=== PATIENT | male | born 1950 | race Caucasian/White ===

== ENCOUNTER 2019-12-08 11:07 | Day surgery (SDC) | payer MEDICARE, MEDICAID, SELFPAY ==
[2019-12-07 13:42] VITALS: BMI 17.7
[2019-12-08] VITALS (10 sets, daily range): BP systolic 141–173; BP diastolic 85–110; PULSE 73–86; RESP 16–20; TEMP 36.6–37.2; O2SAT 95–100
[2019-12-08] MEDS: sodium chloride 0.9% 1,000 ML 30 ML IV (11:44)
--- NOTE | 2019-12-08 11:53 | PM.HPUD ---
H&P update H&P Update: DATE OF SURGERY/PROCEDURE: 12/08/19 DATE H&P PERFORMED: 12/03/19 H&P UPDATE INFORMATION: H&P completed within last 30 days and No changes to prior documentation PREOP DIAGNOSIS: Symptomatic cholelithiasis PLANNED PROCEDURE: Operation Date: 12/08/19 12:35 Proposed Procedures p Laparoscopic Cholecystectomy 61221 R10.9(Not Applicable) - Torin Stanford MD Full H&P Medications/Allergies: Current Medications: Current Medications Generic Name Dose Route Start Last Admin Trade Name Freq PRN Reason Stop Dose Admin Sodium Chloride 1,000 mls @ 30 ml s/hr 12/08/19 11:30 12/08/19 11:44 Sodium Chloride 0.9% IV 12/09/19 11:29 30 mls/hr .Q24H TANYA Administration Perinent History: Family History: Family History (Updated 12/03/19 @ 14:54 by Claudette Alonso RN) Sister Diabetes Other Cancer Denies family history of Anesthesia complication Bleeding disorder Social History: Social History Smoking and tobacco status: current every day smoker cigarettes Second hand smoke exposure: Yes Alcohol intake: never Substance/Drug Use: never Adopted: No Caregiver/support person: Yes Lives independently: Yes Household members: none Housing: Assisted Living Facility Marital status: Highest education level completed: High School Graduate service: No Current occupational status: retired Current occupational exposures/hazards: No Pets and animals: No History of recent travel: No Sexually active: Yes Current gender identity: Male Rupinder/Judaism: [employer] Special rupinder needs: No Agree to transfusion: No Financial difficulty paying for basics: Decline to Answer
--- NOTE | 2019-12-08 12:11 | ANES.PREANES ---
Pre-Anesthetic Assessment Pre-Anesthetic Assessment: Height/Weight: Height 1.68 m Weight 49.895 kg Temp Pulse Resp BP Pulse Ox 98.9 F 77 18 173/110 98 12/08/19 11:21 12/08/19 11:21 12/08/19 11:21 12/08/19 11:21 12/08/19 11:21 Preop Diagnosis: Symptomatic cholelithiasis Proposed Procedure: Operation Date: 12/08/19 12:35 Proposed Procedures p Laparoscopic Cholecystectomy 85868 R10.9(Not Applicable) - Torin Stanford MD Last intake: Intake Last Liquid Date 12/07/19 Last Solid Date 12/07/19 Last Intake: 22:00 Social: Social History: Tobacco Packs per day: 1/2 Pack years: 23.5 Exam: Pre-Anes Outpt Exam: alert, oriented x 3, clear to auscultation bilaterally and regular rate & rhythm Airway: Submandibular: WNL Cervical ROM: WNL MP: 1 GI: GI: GERD Comments: choleliais well conteolled w/protonix Neuropsych: Neuropsych: CVA Comments: '05 right arm weakness, lasted one hour. no residual Anesthetic Plan: ASA status: II Anesthesia: General Meds/Allergies Current Medications: Current Medications Generic Name Dose Route Start Last Admin Trade Name Freq PRN Reason Stop Dose Admin Sodium Chloride 1,000 mls @ 30 ml s/hr 12/08/19 11:30 12/08/19 11:44 Sodium Chloride 0.9% IV 12/09/19 11:29 30 mls/hr .Q24H TANYA Administration PFSH Anesthesia PFSH: Social History (Updated 12/07/19 @ 13:39 by Alma Hicks RN) Smoking and tobacco status: current every day smoker cigarettes Second hand smoke exposure: Yes Alcohol intake: never Substance/Drug Use: never Adopted: No Caregiver/support person: Yes Lives independently: Yes Household members: none Housing: Assisted Living Facility Marital status: Highest education level completed: High School Graduate service: No Current occupational status: retired Current occupational exposures/hazards: No Pets and animals: No History of recent travel: No Sexually active: Yes Current gender identity: Male Rupinder/Confucianism: Spiritism Special rupinder needs: No Agree to transfusion: No Financial difficulty paying for basics: Decline to Answer Data Anesthesia Cardiac Studies: No Data to Display
[2019-12-08] MEDS: ceFAZolin 1,000 MG in sodium chloride 0.9% (plus) 50 ML 100 MG IV (12:29)
[2019-12-08] MEDS: lidocaine 2% INJ 20 mL INJECTION (12:51)
--- NOTE | 2019-12-08 13:23 | PM.OP ---
Operative Report Date of procedure: 12/09/19 Pre-op Diagnosis: Symptomatic cholelithiasis Post-op diagnosis: other (Chronic calculus cholecystitis) Post-op Findings: The same Procedure Done: Laparoscopic cholecystectomy Specimens removed/disposition: Gallbladder and contents Lymph node of [place] Surgeon: Torin Stanford Angledozer Operator: Surgical Wai Villalpando Circulating nurse Kassidy Anesthesia: General (gasoline catalyst operator Stan) and Local Estimated blood loss (mL): 10 Complications: No immediate complication Findings: Chronic cholecystitis Condition: stable Disposition: same day Brief History: This is a pleasant 69 years old gentleman presented with history of persistent nausea and vomiting was found to have gallbladder stones. Plan of care; After thorough history physical examination and reviewing the chart ,I counseled the patient for laparoscopic cholecystectomy possible open, indications risks including but not limited injury to the common bile duct and other viscera.benefits and alternatives all discussed with the patient, and she did agree to proceed. All questions have been answered and all concerns have been addressed to patient's satisfaction. Informed consent per chart Procedure: Patient was identified in the holding area and taken back to the operative suite, placed in supine position intubated by anesthesia . Time-out was done verifying the patient's name/date of /planned procedure and destination after the procedure, all were in agreement. SCDs confirmed to be functioning, preoperative antibiotics administered per protocol, and beta gisel protocol was confirmed. Patient was appropriately secured to the table, footboard was applied to the OR table, before prep and drape anesthesia was asked to tilt the table back and forth to make sure that the patient is appropriately secured and she was. Prep and drape of the abdomen was done under the usual sterile technique, followed by that Infraumbilical skin incision,skin incision was done by a 15 blade knife, and stay sutures were applied to the fascia and Black trocar technique was used to enter the abdominal without injuring any abdominal viscera, started by low flow gas insufflation followed by a high flow, started with a 10 mm laparoscope and under direct vision there was no evidence of any injuries, the scope then switched to a 30? ,10 millimeter scope and under direct visualization 5 millimeter trocar was inserted in the epigastric region followed by two 5 mm trocars were inserted in the right upper quadrant that was done after injection of local lidocaine 2% at all incision sites. Gallbladder showed chronic cholecystitis with enlarged lymph node of [place] Patient was then positioned in the head up and tilted to the left dissection started by taking adhesions down using [place] forceps with heat, continued dissection until I identified the critical view of the cystic duct and cystic artery where seen connected to the gallbladder. Clips were applied on the cystic duct towards the common bile duct 1 towards the gallbladder then divided is in sharp scissors, 2 clips were then applied onto the cystic artery and 1 towards the gallbladder and divided by sharp scissors. Dissection was then carried along of the gallbladder from the gallbladder fossa using cautery as well as sharp dissection with heat energy. The gallbladder then was dissected out from the gallbladder fossa totally , cholecystectomy was then achieved and was placed in an Endo Catch bag and then retrieved from the Black trocar site under direct visualization using a 5 mm 30? scope through the epigastric trocar, specimen was then passed to the circulating nurse to go for permanent pathology,irrigation and hemostasis was done to the gallbladder fossa after hemostasis was secured, final survey laparoscopy was done that showed no injuries. Suction irrigation was obtained The Infraumbilical fascial defect was then closed using interrupted Vicryl sutures using a fascial closure device ;Fabricio Barton under direct visualization Gas was allowed to deflate,Trocars were then taken out under direct vision there was no evidence of bleeding Specimen was passed to the circulating nurse for permanent pathology. No drains were placed and the Infraumbilical incision as well as all trocar sites were closed by by 4-0 Monocryl to approximate the skin edges of the supraumbilical incision, dressing was applied in the form of Dermabond and the patient patient got extubated and was taken to recovery area in a stable condition. Count of sponges, needles and instruments were completed at the end of the procedure I was present for the whole entire procedure.
--- NOTE | 2019-12-08 13:41 | SUR.PHASEI ---
1340 PATIENT TO PACU AT THIS TIME VIA GURNEY FROM OR. RR EVEN AND UNLABORED. ORAL AIRWAY IN PLACE. SIMPLE MASK PLACED AT 8L, SPO2 100%. PATIENT OPENS EYES TO VERBAL STIMULI. 4 STABS TO ABDOMEN, CDI.
[2019-12-08] MEDS: fentaNYL 50 mcg/mL INJ 2mL IVP ×2 (13:59→14:03)
--- NOTE | 2019-12-08 14:15 | SUR.PHASEI ---
1408 PATIENT TO OPS VIA GURNEY. RR EVEN AND UNLABORED. RATES PAIN 5/10. PATIENT AGREES TO TAKE A PAIN PILL PO IN OPS AFTER EATING. 4 STABS TO ABDOMEN, CDI.
[2019-12-08] MEDS: HYDROcodone-acetaminophen 5-325 mg Tablet 1 TAB PO (15:08)
== END 2019-12-08 15:05 | disposition other institution (70) ==
PROVIDERS: PCP Nurse Practitioner Family; Visit Provider Surgery
PROC: 0FT44ZZ Resection of Gallbladder, Percutaneous Endoscopic Approach (ICD-10-PCS; CPT 47562; principal; 2019-12-08 12:35)
DX: K80.10 Calculus of gallbladder with chronic cholecystitis without obstruction (principal); R59.0 Localized enlarged lymph nodes; F17.210 Nicotine dependence, cigarettes, uncomplicated; Z83.3 Family history of diabetes mellitus
CPT/HCPCS: 38500; 47562; 12345; 88304; 88305; 96365; J0131; J0690; J2001; J2405; J2704; J2710; J3010; J3490; J7030

== ENCOUNTER 2019-12-12 14:00 | Emergency (ER) | payer MEDICARE, MEDICAID, SELFPAY ==
[2019-12-12 14:01] VITALS: BP 146/79; PULSE 64; RESP 18; TEMP 36.7; O2SAT 94; BMI 17.7
--- NOTE | 2019-12-12 14:03 | ED_ITS ---
Entered by Trice Martínez, acting as scribe for Tanvi Monreal MD HPI - Abdominal Pain General: Chief Complaint: Abdominal Pain Stated Complaint: ABD PAIN Time Seen by Provider: 12/12/19 14:03 Source: patient and EMS Mode of arrival: EMS Limitations: no limitations History of Present Illness: HPI narrative: 69 yo male presents to ED with complaints of abdominal pain. had gall bladder removed on Saturday (12.08.2019) by Dr Vuong. He was told he had an infection while at the [facility] in [place] ([facility]). He said he has only had a small bowel movement in 4 days. MD elicited complaint: abdominal pain Pertinent past history: other (recent cholecystectomy) Onset (ago): day(s) (4) Pain Consistency: intermittent Location: Diffuse Severity: moderate Quality: aching Radiation: none Migration to: no migration Exacerbating factors: bowel movement (no BM) and other (pain medication) Relieving factors: nothing Context: recent surgery/procedure (cholecystectomy) Associated Symptoms: Reports change in bowel habits and constipation; Denies chills and fever(s) Treatments prior to arrival: prescription analgesics Review of Systems Const: Denies: fever or chills Eyes: Denies: change in vision ENMT: Denies: throat pain or mouth pain Card: Denies: chest pain Resp: Denies: shortness of breath GI: Reports: constipation and change in bowel habits Musc: Denies: back pain or joint pain Skin/Breast: Denies: rash Neuro: Denies: headache or behavioral changes Psych: Denies: depression Endo: Denies: excessive urination Patrick/Lymph: Denies: easy bruising All/Imm: Denies: hives PFSH ED PFSH: Statuses (acute, chronic, etc) shown below reflect problem list status as previously entered and may not be historically accurate Surgical History (Updated 12/08/19 @ 13:28 by Torin Stanford MD) Gallstones (Resolved) Social History (Updated 12/07/19 @ 13:39 by Alma Hicks RN) Smoking and tobacco status: current every day smoker cigarettes Second hand smoke exposure: Yes Alcohol intake: never Adopted: No Caregiver/support person: Yes Lives independently: Yes Household members: none Housing: Assisted Living Facility Marital status: Highest education level completed: High School Graduate service: No Current occupational status: retired Current occupational exposures/hazards: No Pets and animals: No History of recent travel: No Sexually active: Yes Current gender identity: Male Rupinder/Presybeterian: [employer] Special rupinder needs: No Agree to transfusion: No Financial difficulty paying for basics: Decline to Answer Physical Exam Const: COMMON NORMALS: no apparent distress and healthy appearing HENMT: COMMON NORMALS: normocephalic and external nose normal HEAD & SCALP: normocephalic NOSE: external nose normal and no nasal discharge (nasal dischage) Eye: COMMON NORMALS: PERRL PUPIL: Yes PERRL Neck/C-Spine: COMMON NORMALS: full ROM and no lymphadenopathy Chest: COMMONS NORMALS: inspection of chest normal Resp: COMMON NORMALS: normal respiratory effort and clear to auscultation bilaterally AUSCULTATION: clear to auscultation bilaterally Cardio: COMMON NORMALS: regular rate and regular rhythm RATE: regular rate RHYTHM: regular rhythm GI: COMMON NORMALS: soft to palpation PALPATION: Yes soft Extremity: COMMON NORMALS: normal to inspection, full ROM and normal capillary refill Psych: COMMON NORMALS: mental status grossly normal and cooperative Skin: COMMON NORMALS: no rashes or lesions noted GENERAL SKIN EXAM: no rashes or lesions noted Course Vital Signs: Vital signs: Vital Signs Temperature 98.0 F 12/12/19 14:01 Pulse Rate 57 L 12/12/19 17:01 Respiratory Rate 18 12/12/19 17:01 Blood Pressure 122/72 12/12/19 17:01 Pulse Oximetry 98 12/12/19 17:01 MDM - Abdominal Pain MDM Narrative: Medical decision making narrative: Patient presents here with abdominal pain likely from constipation has had no bowel movements. Patient CT scan here is normal. He has no tenderness on exam. Patient is stable for discharge and is to follow-up with a surgeon in 3 to 5 days and return if worsening. Lab Data: Labs: Lab Results 12/12/19 12/12/19 Range/Units 14:10 14:44 WBC 6.2 (4.0-10.0) 10^3/ uL RBC 4.25 (4.1-5.3) 10^6/u L Hgb 13.0 (11.7-16.6) g/dL Hct 38.6 L (42.0-52.0) % MCV 90.8 (80-94) fL MCH 30.6 (28.0-34.0) pg MCHC 33.7 (30.0-36.0) g/dL RDW 15.2 H (12.1-15.1) % Plt Count 268 (130-400) 10^3/c mm MPV 11.7 H (7.4-10.4) fL Neut % (Auto) 58.7 % Lymph % (Auto) 25.6 % [place] % (Auto) 12.1 % Eos % (Auto) 2.6 % Baso % (Auto) 0.8 % Neut # (Auto) 3.6 (1.8-7.7) 10^3/u L Lymph # (Auto) 1.6 (0.8-4.8) 10^3/u L [place] # (Auto) 0.8 (0.2-0.9) 10^3/u L Eos # (Auto) 0.2 (0.0-0.8) 10^3/u L Baso # (Auto) 0.1 (0.0-0.1) 10^3/u L Nucleated RBC % (a uto) 0 % Nucleated RBCs # 0.0 /100WBC Sodium 141 (136-145) mmol/L Potassium 3.5 (3.5-5.1) mmol/L Chloride 100 (98-107) mmol/L Carbon Dioxide 30 H (22-29) mmol/L Anion Gap 14.5 (5-19) BUN 10 (8-23) mg/dL Creatinine 0.6 L (0.7-1.2) mg/dL GFR Calculation 134.4 H (90-130) mL/min Glucose 106 (74-106) mg/dL Calcium 9.6 (8.5-10.5) mg/dL Total Bilirubin 0.5 (0.15-1.2) mg/dL AST 17 (0-40) U/L ALT 20 (0-41) U/L Alkaline Phosphata se 105 (40-130) IU/L Total Protein 6.5 L (6.6-8.7) g/dL Albumin 4.2 (3.5-5.2) g/dL Globulin 2.3 (1.3-4.6) g/dL Lipase 13 (13-60) U/L Imaging Data ^: CT Abd/Pel: Radiologist's impression: [facility] Final Radiology Report Call: [phone] assistance Online chat: [email or web address] Name: ZULEMA LOVE Age: 69Years M Date: 12/12/2019 SSN: -- : [id number] Study: CT ABDOMEN/PELVIS W Requesting Physician: tanvi Monreal Images: 224 Add?l Studies: Provided Clinical History: abd pain Procedure Accession CTDI Vol (mGy) DLP (mGy-cm) CT ABDOMEN/PELVIS W [id number] 454.4 Page 1 of 2 PROCEDURE INFORMATION: Exam: CT Abdomen And Pelvis With Contrast Exam date and time: 12/12/2019 2:09 PM Age: 69 years old Clinical indication: Abdominal pain; Generalized; Prior surgery; Surgery date: 3-7 days postoperative; Patient HX: Gb surgery 12/08/2019, llq pain across umbilicus; Additional info: Abd pain TECHNIQUE: Imaging protocol: Computed tomography of the abdomen and pelvis with intravenous contrast. Total DLP: 454.4 mGy-cm Radiation optimization: All CT scans at this facility use at least one of these dose optimization techniques: automated exposure control; mA and/or kV adjustment per patient size (includes targeted exams where dose is matched to clinical indication); or iterative reconstruction. Contrast material: OMNIPAQUE 300; Contrast volume: 95 ml; Contrast route: IV; COMPARISON: CT abdomen pelvis w con* [id number] 10/12/2019 4:23 PM FINDINGS: Liver: Normal. No mass. Gallbladder and bile ducts: Interval cholecystectomy. Pancreas: Normal. No ductal dilation. Spleen: Normal. No splenomegaly. Adrenals: Normal. No mass. Kidneys and ureters: Normal. No hydronephrosis. Stomach and bowel: Moderate diverticulosis. Appendix: No evidence of appendicitis. ZULEMA LOVE Final Radiology Report CONFIDENTIALITY STATEMENT This report is intended only for use by the referring physician, and only in accordance with law. If you received this in error, call [phone]. Page 2 of 2 Intraperitoneal space: Extensive pneumoperitoneum. Ggso-nb-ehlxzlty free fluid in the dependent portion of the pelvis with some fluid fluid levels. The free air and free fluid in the abdomen pelvis could be secondary to recent surgery versus occult bowel perforation. No obvious bowel perforation is identified. Vasculature: Calcification of the abdominal aorta and/or iliac arteries consistent with atherosclerotic vessel disease. Lymph nodes: Unremarkable. No enlarged lymph nodes. Bladder: Unremarkable as visualized. Reproductive: Unremarkable as visualized. Bones/joints: Unremarkable. No acute fracture. Soft tissues: Unremarkable. IMPRESSION: 1. Extensive pneumoperitoneum. 2. Interval cholecystectomy. 3. The free air and free fluid in the abdomen pelvis could be secondary to recent surgery versus occult bowel perforation. No obvious bowel perforation is identified. Thank you for allowing us to participate in the care of your patient. Dictated and Authenticated by: Suhas Quintero MD 12/12/2019 Discharge Plan Discharge Patient Disposition: Home, Self-Care Clinical Impression: Abdominal pain Qualifiers: Abdominal location: generalized Qualified Code(s): R10.84 - Generalized abdominal pain Constipation Qualifiers: Constipation type: drug induced constipation Qualified Code(s): K59.03 - Drug induced constipation Condition: Stable Prescriptions: New Miralax 17 gram/dose powder 8.5 gm PO DAILY PRN (Reason: constipation) 14 Days RF: 0 No Action alprazolam 1 mg tablet 1 mg PO BID RF: 0 Soma 350 mg Tablet 350 mg PO DAILY RF: 0 hydrocodone-acetaminophen [[place]] 5-325 mg tablet 1 tab PO Q6H PRN (Reason: pain) Qty: 28 RF: 0 Discharge Orders: Discharge Order (Routine); Ordered 12/12/19 Ordered By: Tanvi Monreal Referrals: Torin Stanford MD [Physician] - 4-7 days Brock King DO [Family Provider] - Vanessa Lomas [Primary Care Provider] - Discharge Diet: Advance as tolerated Discharge Activity: Increase activity as tolerated Patient Instructions: Abdominal Pain (ED) Discharge Date/Time: 12/12/19 17:07 Coding Level of Care Code ED Tentmaker for Chg Fwd The documentation recorded by the Mauricio nails Valerie R accurately reflects the service I personally performed and the decisions made by Rah clemons Korby, MD Dec 12, 2019 14:00
--- NOTE | 2019-12-12 14:08 | CTR_ITS ---
PROCEDURE INFORMATION: Exam: CT Abdomen And Pelvis With Contrast Exam date and time: 12/12/2019 2:09 PM Age: 69 years old Clinical indication: Abdominal pain; Generalized; Prior surgery; Surgery date: 3-7 days post-operative; Patient HX: Gb surgery 12/08/2019, llq pain across umbilicus; Additional info: Abd pain TECHNIQUE: Imaging protocol: Computed tomography of the abdomen and pelvis with intravenous contrast. Total DLP: 454.4 mGy-cm Radiation optimization: All CT scans at this facility use at least one of these dose optimization techniques: automated exposure control; mA and/or kV adjustment per patient size (includes targeted exams where dose is matched to clinical indication); or iterative reconstruction. Contrast material: OMNIPAQUE 300; Contrast volume: 95 ml; Contrast route: IV; COMPARISON: CT abdomen pelvis w con* [id number] 10/12/2019 4:23 PM FINDINGS: Liver: Normal. No mass. Gallbladder and bile ducts: Interval cholecystectomy. Pancreas: Normal. No ductal dilation. Spleen: Normal. No splenomegaly. Adrenals: Normal. No mass. Kidneys and ureters: Normal. No hydronephrosis. Stomach and bowel: Moderate diverticulosis. Appendix: No evidence of appendicitis. Intraperitoneal space: Extensive pneumoperitoneum. Resk-iu-fxhhgjfc free fluid in the dependent portion of the pelvis with some fluid fluid levels. The free air and free fluid in the abdomen pelvis could be secondary to recent surgery versus occult bowel perforation. No obvious bowel perforation is identified. Vasculature: Calcification of the abdominal aorta and/or iliac arteries consistent with atherosclerotic vessel disease. Lymph nodes: Unremarkable. No enlarged lymph nodes. Bladder: Unremarkable as visualized. Reproductive: Unremarkable as visualized. Bones/joints: Unremarkable. No acute fracture. Soft tissues: Unremarkable. CT/CT abdomen pelvis w con* [id number] IMPRESSION: 1. Extensive pneumoperitoneum. 2. Interval cholecystectomy. 3. The free air and free fluid in the abdomen pelvis could be secondary to recent surgery versus occult bowel perforation. No obvious bowel perforation is identified. Radiation Dose CTDIVOL = (mGy): DLP = 454.4 (mGy-cm)
[2019-12-12 14:21] LABS: Basophils # 0.1 10^3/uL (0.0-0.1); Basophils % 0.8 %; Eosinophils # 0.2 10^3/uL (0.0-0.8); Eosinophils % 2.6 %; Hematocrit 38.6 % (42.0-52.0); Lymphocytes # 1.6 10^3/uL (0.8-4.8); Lymphocytes % 25.6 %; Mean Corpuscular HGB Conc 33.7 g/dL (30.0-36.0); Mean Corpuscular Hemoglobin 30.6 pg (28.0-34.0); Mean Corpuscular Volume 90.8 fL (80-94); Mean Platelet Volume 11.7 fL (7.4-10.4); Monocytes # 0.8 10^3/uL (0.2-0.9); Monocytes % 12.1 %; Neutrophils # 3.6 10^3/uL (1.8-7.7); Neutrophils % 58.7 %; Nucleated Red Blood Cells % 0 %; Platelet Count 268 10^3/cmm (130-400); Red Blood Count 4.25 10^6/uL (4.1-5.3); Red Cell Distribution Width 15.2 % (12.1-15.1); White Blood Count 6.2 10^3/uL (4.0-10.0)
[2019-12-12 15:12] LABS: Alanine Aminotransferase 20 U/L (0-41); Albumin Level 4.2 g/dL (3.5-5.2); Alkaline Phosphatase 105 IU/L (40-130); Anion Gap 14.5 (5-19); Aspartate Amino Transferase 17 U/L (0-40); Blood Urea Nitrogen 10 mg/dL (8-23); Calcium 9.6 mg/dL (8.5-10.5); Carbon Dioxide 30 mmol/L (22-29); Chloride 100 mmol/L (98-107); Globulin 2.3 g/dL (1.3-4.6); Glomerular Filtration Rate 134.4 mL/min (90-130); Glucose 106 mg/dL (74-106); Lipase 13 U/L (13-60); Potassium 3.5 mmol/L (3.5-5.1); Sodium 141 mmol/L (136-145); Total Bilirubin 0.5 mg/dL (0.15-1.2); Total Protein 6.5 g/dL (6.6-8.7)
[2019-12-12] MEDS: iohexol 300 mg/mL 100 mL Btl IV (15:36)
[2019-12-12 16:55] VITALS: RESP 18; O2SAT 98
[2019-12-12] MEDS: morphine 4 mg/mL SDV 1 mL IVP (16:55)
[2019-12-12 17:01] VITALS: BP 122/72; PULSE 57; RESP 18; O2SAT 98
--- NOTE | 2019-12-14 14:41 | DCPLANNER ---
manager editorial had message to schedule a followup appointment for patient with general surgery. manager editorial called [facility], an appointment is scheduled for November at 11:00.
--- NOTE | 2020-01-28 11:40 | DCPLANNER ---
Appointment scheduled with [facility], was cancelled.
== END 2019-12-12 17:07 | disposition home or self-care (01) ==
PROVIDERS: Emergency Provider Emergency Medicine; PCP Nurse Practitioner Family
DX: K59.03 Drug induced constipation (principal); F17.210 Nicotine dependence, cigarettes, uncomplicated
CPT/HCPCS: 36415; 74177; 80053; 83690; 85025; 96374; 99281; J2270; Q9967

== ENCOUNTER 2020-06-07 07:39 | Outpatient (CLI) | payer MEDICARE, MEDICAID, SELFPAY ==
--- NOTE | 2020-06-07 07:47 | US_ITS ---
WS: [id number] Limited abdominal ultrasound. HISTORY: Left-sided flank pain. Spleen is normal size at 7.8 cm in length. Normal concavity of the hilum. Mild atherosclerosis aorta with no aneurysm. Normal size LEFT kidney measuring 11.1 cm in length. No mass or hydronephrosis. The re is no ascites or adenopathy identified. US/US abdomen limited [id number] IMPRESSION: Normal appearance of the spleen and LEFT kidney.
--- NOTE | 2020-06-07 07:47 | XRR_ITS ---
PROCEDURE INFORMATION: Exam: XR Left Ribs with PA Chest, 3 Views Exam date and time: 06/07/2020 8:10 AM Age: 70 years old Clinical indication: Other: Left ribs pain; Patient HX: C/O left side rib pain-constant; Additional info: Left sided rib pain TECHNIQUE: Imaging protocol: XR Left ribs 3 views with PA chest. COMPARISON: CR Chest 1 [place] [id number] 11/04/2018 4:15 PM FINDINGS: Lungs: COPD and interstitial prominence. Pleural space: No pleural effusion. Heart/Mediastinum: No cardiomegaly. Bones/joints: Old rib fractures. Cervical spine fusion. Degenerative change. XR/XR ribs LT mn 3V w CXR1V [id number] IMPRESSION: Old rib fractures and COPD.
== END 2020-06-07 07:40 | disposition home or self-care (01) ==
PROVIDERS: PCP Nurse Practitioner Family; Visit Provider Nurse Practitioner Family
DX: R07.81 Pleurodynia (principal); R10.9 Unspecified abdominal pain; J44.9 Chronic obstructive pulmonary disease, unspecified
CPT/HCPCS: 71101; 76705

== ENCOUNTER 2020-09-24 18:19 | Emergency (ER) | payer MEDICARE, MEDICAID, SELFPAY ==
[2020-09-24] VITALS (8 sets, daily range): BP systolic 119–171; BP diastolic 79–96; PULSE 56–73; RESP 16–20; TEMP 36.7; O2SAT 93–98; BMI 17.7
--- NOTE | 2020-09-24 18:31 | XRR_ITS ---
PROCEDURE INFORMATION: Exam: XR Chest, 1 View Exam date and time: 09/24/2020 7:07 PM Age: 70 years old Clinical indication: Other: Dizzy TECHNIQUE: Imaging protocol: XR of the chest Views: 1 view. COMPARISON: CR XR ribs LT mn 3V w CXR1V [id number] 06/07/2020 7:57 AM FINDINGS: Lungs: Stable COPD . Pleural space: Unremarkable. No pleural effusion. No pneumothorax. Heart/Mediastinum: Unremarkable. No cardiomegaly. Vasculature: Calcification of the thoracic aorta and/or great vessels consistent with atherosclerotic vessel disease. Bones/joints: Stable postoperative metallic fixation of the cervical spine with or without metallic artifact. XR/XR chest 1V portable [id number] IMPRESSION: Stable COPD .
--- NOTE | 2020-09-24 18:31 | CTR_ITS ---
PROCEDURE INFORMATION: Exam: CT Head Without Contrast Exam date and time: 09/24/2020 6:57 PM Age: 70 years old Clinical indication: Patient HX: C/O dizziness, weakness, multiple falls w HX of strokes; Additional info: Dizzy TECHNIQUE: Imaging protocol: Computed tomography of the head without contrast. Radiation optimization: All CT scans at this facility use at least one of these dose optimization techniques: automated exposure control; mA and/or kV adjustment per patient size (includes targeted exams where dose is matched to clinical indication); or iterative reconstruction. 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 Cerebral ventricles: No ventriculomegaly. Bones/joints: Mild degenerative disc disease and spondylosis. Postoperative changes over the right lateral superior orbital rim. Associated metallic fixation and artifact. Paranasal sinuses: Mild left maxillary sinus disease. Mild left ethmoid sinus disease. Mastoid air cells: Visualized mastoid air cells are well aerated. Vasculature: Severe calcified intracranial atherosclerotic vessel disease. Soft tissues: Unremarkable. CT/CT head wo con* [id number] IMPRESSION: 1. Mild left maxillary sinus disease. 2. Mild left ethmoid sinus disease. 3. No acute intracranial findings. Radiation Dose CTDIVOL = (mGy): DLP = 832.84 (mGy-cm)
--- NOTE | 2020-09-24 18:31 | ECG_ITS ---
[facility] Test Date: 2020-09-24 Pat Name: Stan Maynard Department: Room: Gender: Male [employer]: : 1950 Requested By: Aden Taylor Order Number: [id number] Mary MD: Evelia Javed M.D. 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 [id number]
[2020-09-24 19:09] LABS: Add Urine Microscopic? NO
[2020-09-24 19:12] LABS: Urine Color Yellow (Yellow)
[2020-09-24 19:13] LABS: Bilirubin Urine Neg (Negative); Blood Urine Neg (Negative); Glucose Urine UA Norm (Normal); Ketones Urine Negative (Negative); Leukocyte Esterase Urine Negative (Negative); Nitrate Urine Negative (Negative); Protein Urine Neg (Negative); Specific Gravity, Urine 1.005 (1.005-1.030); Urine Appearance Clear (CLEAR); Urobilinogen Urine Norm (Negative); pH Urine 6 (5-7)
--- NOTE | 2020-09-24 19:31 | W.ED.DIZZY ---
HPI - Dizziness General: Chief Complaint: Dizziness Stated Complaint: DIZZY AND LIGHT HEADED Time Seen by Provider: 09/24/20 18:21 Source: patient Mode of arrival: ambulatory Limitations: no limitations History of Present Illness: HPI Narrative: Mr. Maynard is a nice 70-year-old man who comes in with multiple complaints. He states that he has been having syncopal spells that happen daily sometimes multiple times per day. He states this has been going on for months. The patient is a difficult historian and I cannot completely tell from his description if he truly has loss of consciousness but these episodes do entail him having to lower himself to the ground and sometimes laying on the ground for some time. It does not sound like he has complete loss of consciousness but this is still unclear. Patient today complains of left-sided weakness that he states started sometime around 2 PM this afternoon. Patient states it feels like when he had a stroke. Associated symptoms: Reports headache(s) and syncope; Denies change in hearing, chest pain, chills, diaphoresis, ear discharge, malaise, nausea, palpitations or vomiting Associated neuro symptoms: Reports numbness in extremities; Deny confusion Review of Systems Const: Denies: fever(s), chills, body aches, fatigue, malaise or diaphoresis Eyes: Denies: change in vision, blurry vision, photophobia, eye discomfort, eye discharge, eye redness or yellow eyes ENMT: Denies: throat pain, odynophagia, hoarseness, swelling of lips/tongue, ear or mastoid pain, ear discharge, change in hearing or nasal discharge Card: Reports: syncope; Denies: chest pain, palpitations, irregular heart rhythm, edema, lightheadedness, pre-syncope, dyspnea on exertion or orthopnea Resp: Denies: dyspnea, productive cough, non-productive cough, wheezing, hemoptysis or chest congestion GI: Denies: abdominal pain, nausea, vomiting, hematemesis, coffee ground emesis, heartburn, diarrhea, constipation, GI cramping, hematochezia or melena : Denies: flank pain, dysuria, urinary frequency, urinary urgency or hematuria Musc: Denies: neck pain, back pain, extremity pain, extremity swelling, joint pain, joint swelling, joint redness, joint warmth or joint stiffness Skin/Breast: Denies: rash, pruritus, erythema, skin pain or skin tenderness Neuro: Reports: headache(s), numbness in extremities, weakness in extremities and dizziness; Denies: sensory changes, lack of coordination, difficulty walking, vertigo, confusion, Slurred speech present or seizure-like activity Patrick/Lymph: Denies: easy bruising, easy bleeding, petechiae, purpura or enlarged lymph nodes All/Imm: Denies: urticaria, throat swelling, tongue swelling, facial swelling or acute wheezing PFSH ED PFSH: Medical History Abnormal EKG Benign essential HTN COPD (chronic obstructive pulmonary disease) Emphysema of lung Frequent falls History of stroke Leg pain Low back pain Memory loss Nausea & vomiting Near syncope Surgical History Gallstones History of back surgery History of endarterectomy Removal of plaque in artery History of knee surgery Right Family History Sister Diabetes Other Cancer Gallstones Denies family history of Anesthesia complication Bleeding disorder Social History Smoking and tobacco status: current every day smoker cigarettes Second hand smoke exposure: Yes Alcohol intake: never Adopted: No Caregiver/support person: Yes Lives independently: Yes Household members: none Housing: Assisted Living Facility Marital status: Highest education level completed: High School Graduate service: No Current occupational status: retired Current occupational exposures/hazards: No Pets and animals: No History of recent travel: No Sexually active: Yes Current gender identity: Male Rupinder/Anglican: Sabianism Special rupinder needs: No Agree to transfusion: No Financial difficulty paying for basics: Decline to Answer Physical Exam Const: COMMON NORMALS: no acute distress, patient oriented x3, no limitations and alert GENERAL APPEARANCE: cooperative HENMT: COMMON NORMALS: normocephalic, atraumatic, external ears normal, EAC's normal and Normal external nose present HEAD & SCALP: normal to inspection, normocephalic and atraumatic FACE & SINUS: normal facial exam and face symmetric NOSE: Normal external nose present and Normal nares present EXTERNAL EAR: Yes external ears normal EXTERNAL AUDITORY CANAL: EAC's normal MOUTH: Normal oral and palatal mucosa present, lip normal and tongue normal Eye: COMMON NORMALS: Equal, round and reactive pupils present and conjunctivae normal GENERAL EYE: appearance normal, both eyes and all related structures ALIGNMENT: Yes alignment normal PERIORBITAL: periorbital findings normal EYELID: eyelids normal CONJUNCTIVA: Yes conjunctivae normal SCLERA: sclerae normal PUPIL: Yes Equal, round and reactive pupils present Neck/C-Spine: COMMON NORMALS: full ROM, no lymphadenopathy, supple, no meningeal signs and no JVD GENERAL: Yes normal visual inspection and Yes trachea midline Chest: COMMONS NORMALS: normal inspection of the chest and normal palpation of entire chest wall Resp: COMMON NORMALS: normal respiratory effort, No retractions, No use of accessory muscles and clear to auscultation bilaterally EFFORT & INSPECTION: Yes able to speak in complete sentences and Yes symmetric chest movement AUSCULTATION: clear to auscultation bilaterally, no crackles, no rales, no rhonchi and no wheezes Cardio: COMMON NORMALS: no JVD, regular rate, regular rhythm, S1 normal heart sound present and S2 normal heart sound present RATE: regular rate RHYTHM: regular rhythm HEART SOUNDS: S1 normal heart sound present, S2 normal heart sound present, no click, no gallops, no murmurs and no rubs GI: COMMON NORMALS: Soft to palpation and No hepatosplenomegaly present PALPATION: Yes Soft to palpation, No Tenderness to palpation present (GI), No Guarding due to palpation present (GI), No Rigid due to palpation, Yes No hepatosplenomegaly present, No Hernia present, No Palpable mass present and No Pulsatile mass present : COMMON NORMALS: Yes no CVA tenderness BLADDER/KIDNEY EXAM: Yes no CVA tenderness Back/Pelvis: COMMON NORMALS: no CVA tenderness, thoracic and lumbar spine normal to inspection, no thoracic nor lumbar tenderness and thoraco-lumbar ROM normal Extremity: COMMON NORMALS: normal to inspection, full ROM, capillary refill normal, no joint enlargement, no clubbing, cyanosis or edema and no calf tenderness Neuro: COMMON NORMALS: patient oriented x3, CN's II-XII intact bilaterally, moves all extremities and no focal motor deficits SENSORIUM/ORIENTATION: Yes alert MENINGEAL SIGNS: Yes no meningeal signs SPEECH: speech normal GAIT: Yes Ataxic gait present and Yes Wide-based gait present MOTOR EXAM: 5/5 motor strength present throughout Psych: COMMON NORMALS: mental status grossly normal, Normal thought process present, cooperative, normal affect, speech normal and activity/motor behavior normal SPEECH: Yes normal speech THOUGHT PROCESS: Normal thought process present Skin: COMMON NORMALS: no rashes or lesions noted, turgor normal, no jaundice, no petechiae and no mottling GENERAL SKIN EXAM: no rashes or lesions noted and turgor normal Course Vital Signs: Vital signs: Vital Signs Temperature 98.1 F 09/24/20 22:59 Pulse Rate 57 L 09/24/20 22:59 Respiratory Rate 17 09/24/20 22:59 Blood Pressure 166/91 09/24/20 22:59 Pulse Oximetry 96 09/24/20 22:59 MDM - Dizziness MDM Narrative: Medical decision making narrative: Mr. Rojo is a nice 70-year-old male who comes in because of frequent falls, questionable near syncopal spells and weakness. The patient gives a very bizarre complex story today about falling and having his legs not work. He states he passes out multiple times a day almost every day. Upon detailed history it does not sound like he truly has syncopal spells but just frequent falls. I am suspicious he may be drinking heavily and have problems with multiple medications such as 10 mg hydrocodone acetaminophen tablets, Soma, Xanax and alcohol. The patient has nystagmus and abnormal [id number] testing bilaterally on his NIH stroke scale. He may have a recrudescence causing his left-sided numbness today but other than left lower extremity weakness which I believe was secondary to his chronic pain I believe his neurologic exam is at its baseline. Nonetheless I do not think that this can be confirmed at this time but I have informed the patient he would likely need to be admitted to the hospital for further evaluation and care but he refuses. He is stated multiple times he has people waiting on him at home and he wants to go home. I have explained to him the risks of going home without a definitive diagnosis including ultimately or severe permanent disability but despite my warnings and discussion he refuses to stay and wants to leave. Patient clearly has the capacity to make this decision. He has asked me several questions and recent in his mind and determined that he is safe to go home but does understand he can return if he needs to. Patient agrees to follow-up with his doctors for recheck. Lab Data: Attestation: I reviewed the patient's lab results. Labs: Lab Results 09/24/20 09/24/20 09/24/20 Range/Units 19:05 19:31 19:31 WBC 6.9 (4.0-10.0) 10^3/ uL RBC 4.54 (4.1-5.3) 10^6/u L Hgb 14.2 (11.7-16.6) g/dL Hct 44.0 (42.0-52.0) % MCV 96.9 H (80-94) fL MCH 31.3 (28.0-34.0) pg MCHC 32.3 (30.0-36.0) g/dL RDW 15.5 H (12.1-15.1) % Plt Count 289 (130-400) 10^3/c mm MPV 12.3 H (7.4-10.4) fL Neut % (Auto) 53.7 % Lymph % (Auto) 27.9 % [place] % (Auto) 12.4 % Eos % (Auto) 4.7 % Baso % (Auto) 0.9 % Neut # (Auto) 3.69 (1.8-7.7) 10^3/u L Lymph # (Auto) 1.9 (0.8-4.8) 10^3/u L [place] # (Auto) 0.9 (0.2-0.9) 10^3/u L Eos # (Auto) 0.3 (0.0-0.8) 10^3/u L Baso # (Auto) 0.1 (0.0-0.1) 10^3/u L Nucleated RBC % (a uto) 0 % Nucleated RBCs # 0.0 /100WBC PT 12.80 (12.1-14.9) SECO NDS INR 0.94 (0.8-1.2) Sodium Potassium Chloride Carbon Dioxide Anion Gap BUN Creatinine GFR Calculation Glucose Calculated Osmolal ity Calcium Total Bilirubin AST ALT Alkaline Phosphata se Creatine Kinase Troponin T Baselin e (0-15) ng/L Total Protein Albumin Globulin Urine Color Yellow (Yellow) Urine Appearance Clear (CLEAR) Urine pH 6 (5-7) Ur Specific Gravit y 1.005 (1.005-1.030) Urine Protein Neg (Negative) Urine Glucose (UA) Norm (Normal) Urine Ketones Negative (Negative) Urine Blood Neg (Negative) Urine Nitrate Negative (Negative) Urine Bilirubin Neg (Negative) Urine Urobilinogen Norm (Negative) mg/dL Ur Leukocyte Dayna ase Negative (Negative) 09/24/20 09/24/20 09/24/20 Range/Units 19:31 19:31 20:53 WBC (4.0-10.0) 10^3/ uL RBC (4.1-5.3) 10^6/u L Hgb (11.7-16.6) g/dL Hct (42.0-52.0) % MCV (80-94) fL MCH (28.0-34.0) pg MCHC (30.0-36.0) g/dL RDW (12.1-15.1) % Plt Count (130-400) 10^3/c mm MPV (7.4-10.4) fL Neut % (Auto) % Lymph % (Auto) % [place] % (Auto) % Eos % (Auto) % Baso % (Auto) % Neut # (Auto) (1.8-7.7) 10^3/u L Lymph # (Auto) (0.8-4.8) 10^3/u L [place] # (Auto) (0.2-0.9) 10^3/u L Eos # (Auto) (0.0-0.8) 10^3/u L Baso # (Auto) (0.0-0.1) 10^3/u L Nucleated RBC % (a uto) % Nucleated RBCs # /100WBC PT (12.1-14.9) SECO NDS INR (0.8-1.2) Sodium Cancelled 142 Potassium Cancelled 4.5 Chloride Cancelled 101 Carbon Dioxide Cancelled 33 H Anion Gap Cancelled 12.5 BUN Cancelled 11 Creatinine Cancelled 0.7 GFR Calculation Cancelled 112.1 Glucose Cancelled 84 Calculated Osmolal ity Cancelled 293 Calcium Cancelled 9.9 Total Bilirubin Cancelled 0.2 AST Cancelled 17 ALT Cancelled 11 Alkaline Phosphata se Cancelled 108 Creatine Kinase Cancelled 44 Troponin T Baselin e 12 (0-15) ng/L Total Protein Cancelled 7.0 Albumin Cancelled 4.3 Globulin Cancelled 2.7 Urine Color (Yellow) Urine Appearance (CLEAR) Urine pH (5-7) Ur Specific Gravit y (1.005-1.030) Urine Protein (Negative) Urine Glucose (UA) (Normal) Urine Ketones (Negative) Urine Blood (Negative) Urine Nitrate (Negative) Urine Bilirubin (Negative) Urine Urobilinogen (Negative) mg/dL Ur Leukocyte Dayna ase (Negative) Imaging Data^: CXR: Attestation: I personally reviewed and interpreted this imaging study as follows: My impression: No acute cardiopulmonary findings. CT Head: Attestation: I personally reviewed and interpreted this imaging study as follows: Radiologist's impression: [address] [place] [address] CT Scan Report Signed Patient: Stan Maynard V Unit #: [id number] : 1950 Age/Sex: 70 / M ADM Date: 09/24/20 Loc: ER Room/Bed: Attending Dr: Ordering Provider/Ordering MD: Aden Hong DO Date of Service: 09/24/20 Procedure(s): CT head wo con* [id number] Accession Number(s): [id number] Report Number: [id number] PROCEDURE INFORMATION: Exam: CT Head Without Contrast Exam date and time: 09/24/2020 6:57 PM Age: 70 years old Clinical indication: Patient HX: C/O dizziness, weakness, multiple falls w HX of strokes; Additional info: Dizzy TECHNIQUE: Imaging protocol: Computed tomography of the head without contrast. Radiation optimization: All CT scans at this facility use at least one of these dose optimization techniques: automated exposure control; mA and/or kV adjustment per patient size (includes targeted exams where dose is matched to clinical indication); or iterative reconstruction. COMPARISON: CT head wo con* [id number] 11/04/2018 5:01 PM RADIATION DOSE METRICS: Total DLP (mGy-cm): 832.84 FINDINGS: Brain: Stable chronic right posterior frontal, temporal and parietal lobe infarct with encephalomalacia. Cerebral ventricles: No ventriculomegaly. Bones/joints: Mild degenerative disc disease and spondylosis. Postoperative changes over the right lateral superior orbital rim. Associated metallic fixation and artifact. Paranasal sinuses: Mild left maxillary sinus disease. Mild left ethmoid sinus disease. Mastoid air cells: Visualized mastoid air cells are well aerated. Vasculature: Severe calcified intracranial atherosclerotic vessel disease. Soft tissues: Unremarkable. CT/CT head wo con* [id number] IMPRESSION: 1. Mild left maxillary sinus disease. 2. Mild left ethmoid sinus disease. 3. No acute intracranial findings. Radiation Dose CTDIVOL = (mGy): DLP = 832.84 (mGy-cm) Dictated By: Suhas Quintero MD Signed By: Suhas Quintero MD Signed Date/Time: 09/24/202005 DD/ 04 CTA Head and Neck: Radiologist's impression: [place] [address] CT Scan Report Signed Patient: Stan Maynard V Unit #: [id number] : 1950 Age/Sex: 70 / M ADM Date: 09/24/20 Loc: ER Room/Bed: Attending Dr: Ordering Provider/Ordering MD: Karla Shea DO Date of Service: 09/24/20 Procedure(s): CT angio headneck* [id number] Accession Number(s): [id number] Report Number: [id number] PROCEDURE INFORMATION: Exam: CT Angiography Head With Contrast Exam date and time: 09/24/2020 9:04 PM Age: 70 years old Clinical indication: Dizziness and giddiness and weakness; Prior surgery; Surgery date: 6+ months; Surgery type: C-sp; Patient HX: C/O weakness, dizziness, multiple falls and prev CVA; Additional info: CVA symptoms TECHNIQUE: Imaging protocol: Computed tomography angiography of the head with intravenous contrast. 3D rendering (Not supervised by radiologist): MIP and/or 3D reconstructed images were created by the technologist. Radiation optimization: All CT scans at this facility use at least one of these dose optimization techniques: automated exposure control; mA and/or kV adjustment per patient size (includes targeted exams where dose is matched to clinical indication); or iterative reconstruction. Contrast material: OMNI 350; Contrast volume: 75 ml; Contrast route: INTRAVENOUS (IV); COMPARISON: CT head wo con* [id number] 2020-09-24 19:28 RADIATION DOSE METRICS: Total DLP (mGy-cm): 1628.45 FINDINGS: ANTERIOR CIRCULATION: Right internal carotid artery: Mild cavernous and supraclinoid right internal carotid artery atherosclerotic plaque and stenosis. Right middle cerebral artery: Peripheral posterior right MCA irregular stenotic arteries corresponding to the region of chronic infarction. Right anterior cerebral artery: Unremarkable. No occlusion or significant stenosis. No aneurysm. Left internal carotid artery: Mild left ICA atherosclerotic disease. Mild cavernous and supraclinoid left internal carotid artery atherosclerotic plaque and stenosis. Left middle cerebral artery: Unremarkable. No occlusion or significant stenosis. No aneurysm. Left anterior cerebral artery: Unremarkable. No occlusion or significant stenosis. No aneurysm. POSTERIOR CIRCULATION: Right vertebral artery: Mild right vertebral artery atherosclerotic disease. Left vertebral artery: Mild left vertebral artery atherosclerotic disease. Basilar artery: Unremarkable. No occlusion or significant stenosis. No aneurysm. Right posterior cerebral artery: Mild right [employer]IST stenosis. Left posterior cerebral artery: Unremarkable. No occlusion or significant stenosis. No aneurysm. Brain: No definite mass, mass effect, or midline shift. Cerebral ventricles: Normal. No ventriculomegaly. Bones/joints: Unremarkable. No acute fracture. Soft tissues: Unremarkable. IMPRESSION: Mild right [employer]IST stenosis. PROCEDURE INFORMATION: Exam: CT Angiography Neck With Contrast Exam date and time: 09/24/2020 9:04 PM Age: 70 years old Clinical indication: Dizziness and giddiness and weakness; Prior surgery; Surgery date: 6+ months; Surgery type: C-sp; Patient HX: C/O weakness, dizziness, multiple falls and prev CVA; Additional info: CVA symptoms TECHNIQUE: Imaging protocol: Computed tomography angiography of the neck with intravenous contrast. 3D rendering (Not supervised by radiologist): MIP and/or 3D reconstructed images were created by the technologist. Radiation optimization: All CT scans at this facility use at least one of these dose optimization techniques: automated exposure control; mA and/or kV adjustment per patient size (includes targeted exams where dose is matched to clinical indication); or iterative reconstruction. Contrast material: OMNI 350; Contrast volume: 75 ml; Contrast route: INTRAVENOUS (IV); COMPARISON: CT head wo con* [id number] 2020-09-24 19:28 RADIATION DOSE METRICS: Total DLP (mGy-cm): 1628.45 FINDINGS: Right common carotid artery: Mild atherosclerotic plaque in the predominately distal right common carotid artery and the bifurcation. Right internal carotid artery: Mild atherosclerotic plaque in the carotid bulb and proximal right internal carotid artery with less than 50% stenosis by NASCET criteria. Right external carotid artery: Mild atherosclerotic plaque at the right external carotid artery origin. Right vertebral artery: Moderate right vertebral artery origin stenosis. Left common carotid artery: Patent left common carotid artery. Left internal carotid artery: Left carotid endarterectomy changes. Patent left ICA. Mild distal left cervical ICA calcified atherosclerotic disease and mild narrowing. Left external carotid artery: No occlusion or stenosis of the origin. Left vertebral artery: No stenosis. No dissection or occlusion. Bones/joints: Cervical posterior spinal fusion with laminectomies. Soft tissues: Normal. No significant soft tissue swelling. Lungs: Moderate centrilobular pulmonary emphysema. CT/CT angio headneck* [id number] IMPRESSION: 1. Moderate centrilobular pulmonary emphysema. 2. Moderate right vertebral artery origin stenosis. 3. Left carotid endarterectomy changes. Patent left common carotid artery. Patent left ICA. 4. Mild atherosclerotic plaque in the carotid bulb and proximal right internal carotid artery with less than 50% stenosis by NASCET criteria. REFERENCES: NASCET CRITERIA. The degree of internal carotid artery stenosis is based on NASCET criteria. Normal is no stenosis. Mild is less than 50% stenosis. Moderate is 50-69% stenosis. Severe is 70% to 99% stenosis. Total occlusion is no detectable patent lumen. Radiation Dose CTDIVOL = (mGy): DLP = 1628.45 1628.45 (mGy-cm) Dictated By: Darshan Moe MD Signed By: Darshan Moe MD Signed Date/Time: 09/24/202225 DD/ 24 EKG Data^: EKG 1: Attestation: I personally reviewed and interpreted this EKG as follows: EKG interpretation date: 09/24/20 EKG interpretation time: 18:42 Interpretation: Normal sinus rhythm at 68 beats a minute, no blocks, normal intervals, nonspecific ST and T wave changes. EKG 2: Attestation: I personally reviewed and interpreted this EKG as follows: EKG interpretation date: 09/24/20 EKG interpretation time: 20:39 Interpretation: Normal sinus rhythm at 61 beats a minute, normal axis, no blocks, normal intervals, nonspecific ST and T wave changes. Unchanged from previous. Discharge Plan Discharge Patient Disposition: Left Against Medical Advice Clinical Impression: Frequent falls, Vertebral basilar insufficiency Cerebrovascular accident Qualifiers: CVA mechanism: unspecified Qualified Code(s): I63.9 - Cerebral infarction, unspecified Condition: Stable Prescriptions: New aspirin 325 mg tablet 325 mg PO DAILY Qty: 30 RF: 0 No Action megestrol 40 mg tablet 40 mg PO DAILY RF: 0 pantoprazole [Protonix] 40 mg tablet,delayed release (DR/EC) 40 mg PO DAILY RF: 0 duloxetine 30 mg capsule, delayed rel sprinkle 30 mg PO DAILY RF: 0 hydroxyzine HCl 25 mg tablet 25 mg PO TID PRNRF: 0 alprazolam 1 mg tablet 1 mg PO BID RF: 0 Soma 350 mg Tablet 350 mg PO DAILY RF: 0 hydrocodone-acetaminophen [[place]] 5-325 mg tablet 1 tab PO Q6H PRN (Reason: pain) Qty: 28 RF: 0 Discharge Orders: Discharge Order (Routine); Ordered 09/24/20 Ordered By: Karla Shea Referrals: Siri Marshall MD [Physician] - 1-3 days Brock King DO [Family Provider] - 1-3 days Vanessa Lomas [Primary Care Provider] - 1-3 days Discharge Diet: Low Cholesterol Discharge Activity: Limit activity as instructed Patient Instructions: Ischemic Stroke (GEN) Activity Restrictions/Additional Instructions: Please return to the ER immediately for any of the signs or symptoms listed on your discharge instruction sheets, worsening/changing of your symptoms, you are not getting better as quickly as expected, or for ANY other cause or concerns. Continue your other medications as directed. Do not drink alcohol or mix any medications with your medication you are already prescribed. Take your hydrocodone, Soma and Xanax only as absolutely needed. You're leaving AGAINST MEDICAL ADVICE and are at risk for or severe permanent disability by doing so. You are more than welcome to return at any time for recheck and for further evaluation and care suture change you change your mind. Be certain to follow-up with your primary care providers as well as with Dr. Marshall as soon as possible for recheck and further evaluation and care. Stand Alone Forms: Against Medical Advice Discharge Date/Time: 11/07/20 22:59 Coding Level of Care Code ED Penetration Tester for Katherine Nguyễn NIH stroke score NIHSS Level Of Consciousness - 1a: 0 Level Of Consciousness Questions - 1b: Both Correct Level Of Consciousness Commands - 1c: Both Correct Best Gaze - 2: Normal Visual Mandel - 3: No Visual Loss Facial Palsy - 4: Normal Motor Arm Right - 5: No Drift Motor Arm Left - 5: No Drift Motor Leg Right - 6: No Drift Motor Leg Left - 6: Drift (Not believed to be due to weakness but secondary to back pain) Limb Ataxia - 7: Present In Two Limbs Sensory - 8: Mild To Moderate Loss Best Language - 9: No Aphasia Dysarthia - 10: Normal Extinction And Inattention - 11: 0 Score Total Score: 4
[2020-09-24 19:46] LABS: Basophils # 0.1 10^3/uL (0.0-0.1); Basophils % 0.9 %; Eosinophils # 0.3 10^3/uL (0.0-0.8); Eosinophils % 4.7 %; Hemoglobin 14.2 g/dL (11.7-16.6); Lymphocytes # 1.9 10^3/uL (0.8-4.8); Lymphocytes % 27.9 %; Mean Corpuscular HGB Conc 32.3 g/dL (30.0-36.0); Mean Corpuscular Hemoglobin 31.3 pg (28.0-34.0); Mean Corpuscular Volume 96.9 fL (80-94); Mean Platelet Volume 12.3 fL (7.4-10.4); Monocytes # 0.9 10^3/uL (0.2-0.9); Monocytes % 12.4 %; Neutrophils # 3.69 10^3/uL (1.8-7.7); Neutrophils % 53.7 %; Nucleated Red Blood Cells % 0 %; Platelet Count 289 10^3/cmm (130-400); Red Blood Count 4.54 10^6/uL (4.1-5.3); Red Cell Distribution Width 15.5 % (12.1-15.1); White Blood Count 6.9 10^3/uL (4.0-10.0)
[2020-09-24 20:11] LABS: Troponin(5th) Baseline 12 ng/L (0-15)
--- NOTE | 2020-09-24 20:29 | CTR_ITS ---
PROCEDURE INFORMATION: Exam: CT Angiography Head With Contrast Exam date and time: 09/24/2020 9:04 PM Age: 70 years old Clinical indication: Dizziness and giddiness and weakness; Prior surgery; Surgery date: 6+ months; Surgery type: C-sp; Patient HX: C/O weakness, dizziness, multiple falls and prev CVA; Additional info: CVA symptoms TECHNIQUE: Imaging protocol: Computed tomography angiography of the head with intravenous contrast. 3D rendering (Not supervised by radiologist): MIP and/or 3D reconstructed images were created by the technologist. Radiation optimization: All CT scans at this facility use at least one of these dose optimization techniques: automated exposure control; mA and/or kV adjustment per patient size (includes targeted exams where dose is matched to clinical indication); or iterative reconstruction. Contrast material: OMNI 350; Contrast volume: 75 ml; Contrast route: INTRAVENOUS (IV); COMPARISON: CT head wo con* [id number] 2020-09-24 19:28 RADIATION DOSE METRICS: Total DLP (mGy-cm): 1628.45 FINDINGS: ANTERIOR CIRCULATION: Right internal carotid artery: Mild cavernous and supraclinoid right internal carotid artery atherosclerotic plaque and stenosis. Right middle cerebral artery: Peripheral posterior right MCA irregular stenotic arteries corresponding to the region of chronic infarction. Right anterior cerebral artery: Unremarkable. No occlusion or significant stenosis. No aneurysm. Left internal carotid artery: Mild left ICA atherosclerotic disease. Mild cavernous and supraclinoid left internal carotid artery atherosclerotic plaque and stenosis. Left middle cerebral artery: Unremarkable. No occlusion or significant stenosis. No aneurysm. Left anterior cerebral artery: Unremarkable. No occlusion or significant stenosis. No aneurysm. POSTERIOR CIRCULATION: Right vertebral artery: Mild right vertebral artery atherosclerotic disease. Left vertebral artery: Mild left vertebral artery atherosclerotic disease. Basilar artery: Unremarkable. No occlusion or significant stenosis. No aneurysm. Right posterior cerebral artery: Mild right WIND OPERATIONS SUPERVISOR stenosis. Left posterior cerebral artery: Unremarkable. No occlusion or significant stenosis. No aneurysm. Brain: No definite mass, mass effect, or midline shift. Cerebral ventricles: Normal. No ventriculomegaly. Bones/joints: Unremarkable. No acute fracture. Soft tissues: Unremarkable. IMPRESSION: Mild right WIND OPERATIONS SUPERVISOR stenosis. PROCEDURE INFORMATION: Exam: CT Angiography Neck With Contrast Exam date and time: 09/24/2020 9:04 PM Age: 70 years old Clinical indication: Dizziness and giddiness and weakness; Prior surgery; Surgery date: 6+ months; Surgery type: C-sp; Patient HX: C/O weakness, dizziness, multiple falls and prev CVA; Additional info: CVA symptoms TECHNIQUE: Imaging protocol: Computed tomography angiography of the neck with intravenous contrast. 3D rendering (Not supervised by radiologist): MIP and/or 3D reconstructed images were created by the technologist. Radiation optimization: All CT scans at this facility use at least one of these dose optimization techniques: automated exposure control; mA and/or kV adjustment per patient size (includes targeted exams where dose is matched to clinical indication); or iterative reconstruction. Contrast material: OMNI 350; Contrast volume: 75 ml; Contrast route: INTRAVENOUS (IV); COMPARISON: CT head wo con* [id number] 2020-09-24 19:28 RADIATION DOSE METRICS: Total DLP (mGy-cm): 1628.45 FINDINGS: Right common carotid artery: Mild atherosclerotic plaque in the predominately distal right common carotid artery and the bifurcation. Right internal carotid artery: Mild atherosclerotic plaque in the carotid bulb and proximal right internal carotid artery with less than 50% stenosis by NASCET criteria. Right external carotid artery: Mild atherosclerotic plaque at the right external carotid artery origin. Right vertebral artery: Moderate right vertebral artery origin stenosis. Left common carotid artery: Patent left common carotid artery. Left internal carotid artery: Left carotid endarterectomy changes. Patent left ICA. Mild distal left cervical ICA calcified atherosclerotic disease and mild narrowing. Left external carotid artery: No occlusion or stenosis of the origin. Left vertebral artery: No stenosis. No dissection or occlusion. Bones/joints: Cervical posterior spinal fusion with laminectomies. Soft tissues: Normal. No significant soft tissue swelling. Lungs: Moderate centrilobular pulmonary emphysema. CT/CT angio headneck* [id number] IMPRESSION: 1. Moderate centrilobular pulmonary emphysema. 2. Moderate right vertebral artery origin stenosis. 3. Left carotid endarterectomy changes. Patent left common carotid artery. Patent left ICA. 4. Mild atherosclerotic plaque in the carotid bulb and proximal right internal carotid artery with less than 50% stenosis by NASCET criteria. REFERENCES: NASCET CRITERIA. The degree of internal carotid artery stenosis is based on NASCET criteria. Normal is no stenosis. Mild is less than 50% stenosis. Moderate is 50-69% stenosis. Severe is 70% to 99% stenosis. Total occlusion is no detectable patent lumen. Radiation Dose CTDIVOL = (mGy): DLP = 1628.45~1628.45 (mGy-cm)
[2020-09-24 20:31] LABS: INR 0.94 (0.8-1.2)
--- NOTE | 2020-09-24 20:31 | ECG_ITS ---
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 Measurements Intervals [place] Rate: 61 P: 76 CT: 150 QRS: 91 QRSD: 73 T: 77 QT: 404 QTc: 409 Interpretive Statements SINUS RHYTHM BORDERLINE RIGHT AXIS DEVIATION [QRS AXIS > 90] SEPTAL MYOCARDIAL INFARCTION , OF INDETERMINATE AGE [40+ ms Q WAVE IN V1/V2] Compared to ECG 09/24/2020 18:42:47 Myocardial infarct finding now present Electronically Signed On 09-26-2020 8:24:48 HOME APPLIANCE TECH by Evelia Javed M.D. [id number]
--- NOTE | 2020-09-24 20:42 | PC.NURSE ---
EKG done at 2039 and shown to ER doctor
[2020-09-24] MEDS: sodium chloride 0.9% 500 ML 999 ML IV (21:22)
[2020-09-24 21:33] LABS: Alanine Aminotransferase 11 U/L (0-41); Albumin Level 4.3 g/dL (3.5-5.2); Alkaline Phosphatase 108 IU/L (40-130); Anion Gap 12.5 (5-19); Aspartate Amino Transferase 17 U/L (0-40); Blood Urea Nitrogen 11 mg/dL (8-23); Calcium 9.9 mg/dL (8.5-10.5); Carbon Dioxide 33 mmol/L (22-29); Chloride 101 mmol/L (98-107); Creatine Phosphokinase 44 U/L (39-308); Creatinine Clr Calc Pharmacy 62.3688; Globulin 2.7 g/dL (1.3-4.6); Glomerular Filtration Rate 112.1 mL/min (90-130); Glucose 84 mg/dL (65-115); Osmolality Calculated 293 mOsm/kg (285-295); Potassium 4.5 mmol/L (3.5-5.1); Sodium 142 mmol/L (136-145); Total Bilirubin 0.2 mg/dL (0.15-1.2)
[2020-09-24] MEDS: iohexol 350 mg/mL 100 mL Btl IV (21:54)
--- NOTE | 2020-09-24 23:09 | PC.SOCIAL ---
[employer] contacted for ride home. Trip #[id number], notified [employer] transport of trip.
[2020-09-24 23:13] LABS: Alcohol Level < 10 mg/dL (0-10)
== END 2020-09-24 22:59 | disposition left against medical advice (07) ==
PROVIDERS: Emergency Medicine; Emergency Provider Emergency Medicine; PCP Nurse Practitioner Family
DX: G45.0 Vertebro-basilar artery syndrome (principal); I63.9 Cerebral infarction, unspecified; R29.6 Repeated falls; Z53.21 Procedure and treatment not carried out due to patient leaving prior to being seen by health care provider; I10 Essential (primary) hypertension; J43.9 Emphysema, unspecified; Z86.73 Personal history of transient ischemic attack (TIA), and cerebral infarction without residual deficits; F17.210 Nicotine dependence, cigarettes, uncomplicated; Z79.899 Other long term (current) drug therapy
CPT/HCPCS: 12345; 70450; 70496; 70498; 71045; 80053; 80307; 81003; 82550; 84484; 85025; 85610; 93005; 99283; 99284; J7040; Q9967

== ENCOUNTER 2021-05-10 10:32 | Observation (INO) | payer MEDICARE, MEDICAID, SELFPAY ==
[2021-05-10] VITALS (10 sets, daily range): BP systolic 104–141; BP diastolic 61–82; PULSE 58–100; RESP 13–20; TEMP 36.1–36.6; O2SAT 90–95; BMI 19.3
--- NOTE | 2021-05-10 10:45 | XR_ITS ---
WS: [id number] PORTABLE CHEST HISTORY: chest pain COMPARISON: 09/24/2020 Moderate pulmonary hyperinflation. Mild blunting of the LEFT costophrenic angle. No pneumonia. Normal vasculature. No effusion. Cardiac size: Normal. Mediastinum/Aorta: Mild atherosclerosis aorta. Extensive prior cervical fusion. XR/XR chest 1V portable [id number] IMPRESSION: Moderate chronic emphysema with no pneumonia.
--- NOTE | 2021-05-10 10:45 | ECG_ITS ---
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 Measurements Intervals [place] Rate: 74 P: 79 AL: 153 QRS: 73 QRSD: 69 T: 67 QT: 369 QTc: 411 Interpretive Statements SINUS RHYTHM LOW QRS VOLTAGE IN EXTREMITY LEADS [QRS DEFLECTION < 0.5 mV IN LIMB LEADS] Compared to ECG 09/24/2020 20:39:35 Low QRS voltage now present Myocardial infarct finding no longer present Electronically Signed On 05-10-2021 20:05:29 CDT by Jerod Mccord M.D. [id number] f
[2021-05-10 11:00] LABS: Basophils # 0.1 10^3/uL (0.0-0.1); Basophils % 0.8 %; Eosinophils # 0.1 10^3/uL (0.0-0.8); Hematocrit 45.8 % (42.0-52.0); Hemoglobin 15.1 g/dL (11.7-16.6); Lymphocytes # 2.3 10^3/uL (0.8-4.8); Mean Platelet Volume 11.6 fL (7.4-10.4); Monocytes # 0.8 10^3/uL (0.2-0.9); Monocytes % 10.6 %; Neutrophils # 4.47 10^3/uL (1.8-7.7); Neutrophils % 57.2 %; Nucleated Red Blood Cells % 0 %; Platelet Count 270 10^3/cmm (130-400); Red Blood Count 4.87 10^6/uL (4.1-5.3); Red Cell Distribution Width 15.5 % (12.1-15.1); White Blood Count 7.8 10^3/uL (4.0-10.0)
--- NOTE | 2021-05-10 11:02 | W.ED.CHESTPA ---
HPI - Chest Pain General: Chief Complaint: Chest Pain Stated Complaint: CHEST PAIN Time Seen by Provider: 05/10/21 10:38 History of Present Illness: HPI narrative: 71-year-old male presents emergency room via EMS reporting around 730 this point began having chest pain radiating to his neck and into his back. He declined aspirin from EMS but did take nitroglycerin which relieved his chest pain. He has no known history of coronary disease no previous angiogram or stenting. He denies any hemoptysis denies any fever sweats chills or cough. Patient is nondiabetic but he is a smoker. MD complaint: chest pain Pertinent past history: coronary artery disease Onset (ago): hour(s) Timing of current episode: episodic Prior episodes: Yes Onset: during rest Pain location: left chest Pain radiation: back and neck Severity: moderate Quality: heaviness Relieving factors: nitroglycerin Associated symptoms: Reports dyspnea; Deny abdominal pain, diaphoresis, fever(s), leg edema, nausea, palpitations, sense of impending doom, syncope or vomiting Treatment prior to arrival: aspirin and nitroglycerin Review of Systems Const: Denies: fever(s) or diaphoresis ENMT: Denies: throat pain, ear or mastoid pain, nasal discharge or nasal congestion Card: Denies: palpitations or syncope Resp: Reports: dyspnea GI: Denies: abdominal pain, nausea or vomiting : Denies: flank pain, dysuria, urinary frequency or urinary urgency Skin/Breast: Denies: rash or pruritus [facility] ED PFSH: Medical History Abnormal EKG Benign essential HTN Carotid artery disease COPD (chronic obstructive pulmonary disease) Depression Emphysema of lung Frequent falls GERD (gastroesophageal reflux disease) History of stroke Leg pain Low back pain Memory loss Nausea & vomiting Near syncope Surgical History Gallstones History of back surgery History of endarterectomy Removal of plaque in artery History of knee surgery Right History of neck surgery Family History Sister Diabetes Other Cancer Gallstones Denies family history of Anesthesia complication Bleeding disorder Social History Smoking and tobacco status: current every day smoker cigarettes Second hand smoke exposure: Yes Alcohol intake: never Adopted: No Caregiver/support person: Yes Lives independently: Yes Household members: none Housing: Assisted Living Facility Marital status: Highest education level completed: High School Graduate service: No Current occupational status: retired Current occupational exposures/hazards: No Pets and animals: No History of recent travel: No Sexually active: Yes Current gender identity: Male Rupinder/Presybeterian: Quaker Special rupinder needs: No Agree to transfusion: No Financial difficulty paying for basics: Decline to Answer Physical Exam Const: COMMON NORMALS: average body habitus, patient oriented x3 and alert GENERAL APPEARANCE: cooperative, comfortable, well kempt and well developed NUTRITIONAL APPEARANCE: obese ORIENTATION/CONSCIOUSNESS: Yes awake, Yes oriented to person and Yes oriented to place HENMT: COMMON NORMALS: normocephalic, atraumatic, EAC's normal, TM's normal bilaterally, Normal external nose present, moist oral mucous membranes and oropharynx normal HEAD & SCALP: normocephalic and atraumatic NOSE: Normal external nose present EXTERNAL AUDITORY CANAL: EAC's normal TYMPANIC MEMBRANE: TM's normal bilaterally MOUTH: Normal oral and palatal mucosa present, lip normal and tongue normal THROAT: posterior oropharynx normal and tonsils normal Neck/C-Spine: COMMON NORMALS: no meningeal signs Resp: COMMON NORMALS: normal respiratory effort, No retractions, No use of accessory muscles and clear to auscultation bilaterally AUSCULTATION: clear to auscultation bilaterally Cardio: COMMON NORMALS: regular rate and regular rhythm RATE: regular rate RHYTHM: regular rhythm HEART SOUNDS: no murmurs GI: COMMON NORMALS: Normal to inspection, nondistended, normoactive bowel sounds present, Soft to palpation and No hepatosplenomegaly present PALPATION: Yes Soft to palpation and Yes No hepatosplenomegaly present : COMMON NORMALS: Yes no CVA tenderness BLADDER/KIDNEY EXAM: Yes no CVA tenderness Back/Pelvis: COMMON NORMALS: no CVA tenderness LUMBAR SPINE/LOWER BACK: Yes normal to inspection Extremity: COMMON NORMALS: no clubbing, cyanosis or edema, no calf tenderness and no pedal edema Neuro: COMMON NORMALS: patient oriented x3 SENSORIUM/ORIENTATION: Yes alert, Yes oriented to person and Yes oriented to place MENINGEAL SIGNS: Yes no meningeal signs Psych: APPEARANCE: Yes well kempt Skin: COMMON NORMALS: no rashes or lesions noted and turgor normal GENERAL SKIN EXAM: no rashes or lesions noted and turgor normal Course Vital Signs: Vital signs: Vital Signs Temperature 98.0 F 05/11/21 13:56 Pulse Rate 70 05/11/21 13:56 Respiratory Rate 18 05/11/21 13:56 Blood Pressure 131/75 05/11/21 13:56 Pulse Oximetry 97 05/11/21 13:56 MDM - Chest Pain MDM Narrative: Medical decision making narrative: Patient has known coronary disease his symptoms are improved with nitro we will go ahead and hobs for further rule out and cardiac stress testing Lab Data: Labs: Lab Results 05/10/21 05/10/21 05/10/21 Range/Units 10:58 10:58 10:58 WBC 7.8 (4.0-10.0) 10^3/ uL RBC 4.87 (4.1-5.3) 10^6/u L Hgb 15.1 (11.7-16.6) g/dL Hct 45.8 (42.0-52.0) % MCV 94.0 (80-94) fL MCH 31.0 (28.0-34.0) pg MCHC 33.0 (30.0-36.0) g/dL RDW 15.5 H (12.1-15.1) % Plt Count 270 (130-400) 10^3/c mm MPV 11.6 H (7.4-10.4) fL Neut % (Auto) 57.2 % Lymph % (Auto) 30.0 % Routt % (Auto) 10.6 % Eos % (Auto) 1.0 % Baso % (Auto) 0.8 % Neut # (Auto) 4.47 (1.8-7.7) 10^3/u L Lymph # (Auto) 2.3 (0.8-4.8) 10^3/u L Routt # (Auto) 0.8 (0.2-0.9) 10^3/u L Eos # (Auto) 0.1 (0.0-0.8) 10^3/u L Baso # (Auto) 0.1 (0.0-0.1) 10^3/u L Nucleated RBC % (a uto) 0 % Nucleated RBCs # 0.0 /100WBC Sodium 140 (136-145) mmol/L Potassium 4.3 (3.5-5.1) mmol/L Chloride 103 (98-107) mmol/L Carbon Dioxide 28 (22-29) mmol/L Anion Gap 13.3 (5-19) BUN 20 (8-23) mg/dL Creatinine 0.8 (0.7-1.2) mg/dL GFR Calculation 95.8 (90-130) mL/min Glucose 83 (65-115) mg/dL Calculated Osmolal ity 292 (285-295) mOsm/k g Calcium 9.3 (8.5-10.5) mg/dL Total Bilirubin 0.7 (0.15-1.2) mg/dL AST 16 (0-40) U/L ALT 13 (0-41) U/L Alkaline Phosphata se 103 (40-130) IU/L Troponin T Baselin e 29 H (0-15) ng/L Total Protein 6.2 L (6.6-8.7) g/dL Albumin 4.3 (3.5-5.2) g/dL Globulin 1.9 (1.3-4.6) g/dL TSH (0.27-4.20) uIU/ mL 05/10/21 Range/Units 10:58 WBC (4.0-10.0) 10^3/ uL RBC (4.1-5.3) 10^6/u L Hgb (11.7-16.6) g/dL Hct (42.0-52.0) % MCV (80-94) fL MCH (28.0-34.0) pg MCHC (30.0-36.0) g/dL RDW (12.1-15.1) % Plt Count (130-400) 10^3/c mm MPV (7.4-10.4) fL Neut % (Auto) % Lymph % (Auto) % Routt % (Auto) % Eos % (Auto) % Baso % (Auto) % Neut # (Auto) (1.8-7.7) 10^3/u L Lymph # (Auto) (0.8-4.8) 10^3/u L Routt # (Auto) (0.2-0.9) 10^3/u L Eos # (Auto) (0.0-0.8) 10^3/u L Baso # (Auto) (0.0-0.1) 10^3/u L Nucleated RBC % (a uto) % Nucleated RBCs # /100WBC Sodium (136-145) mmol/L Potassium (3.5-5.1) mmol/L Chloride (98-107) mmol/L Carbon Dioxide (22-29) mmol/L Anion Gap (5-19) BUN (8-23) mg/dL Creatinine (0.7-1.2) mg/dL GFR Calculation (90-130) mL/min Glucose (65-115) mg/dL Calculated Osmolal ity (285-295) mOsm/k g Calcium (8.5-10.5) mg/dL Total Bilirubin (0.15-1.2) mg/dL AST (0-40) U/L ALT (0-41) U/L Alkaline Phosphata se (40-130) IU/L Troponin T Baselin e (0-15) ng/L Total Protein (6.6-8.7) g/dL Albumin (3.5-5.2) g/dL Globulin (1.3-4.6) g/dL TSH 1.61 (0.27-4.20) uIU/ mL Discharge Plan Discharge Patient Disposition: Admitted As Inpatient Admit Provider: Diony Ray Condition: Stable Discharge Diet: Cardiac Discharge Activity: Increase activity as tolerated Coding Level of Care Code ED Solder Level[employer] for Katherine Nguyễn
[2021-05-10] MEDS: nitroglycerin 1 gm/inch oint Pkt 0.5 INCH TOPICAL (11:14)
[2021-05-10 11:23] LABS: Troponin(5th) Baseline 29 ng/L (0-15)
[2021-05-10 11:25] LABS: Alanine Aminotransferase 13 U/L (0-41); Albumin Level 4.3 g/dL (3.5-5.2); Alkaline Phosphatase 103 IU/L (40-130); Anion Gap 13.3 (5-19); Aspartate Amino Transferase 16 U/L (0-40); Blood Urea Nitrogen 20 mg/dL (8-23); Calcium 9.3 mg/dL (8.5-10.5); Carbon Dioxide 28 mmol/L (22-29); Chloride 103 mmol/L (98-107); Globulin 1.9 g/dL (1.3-4.6); Glomerular Filtration Rate 95.8 mL/min (90-130); Glucose 83 mg/dL (65-115); Osmolality Calculated 292 mOsm/kg (285-295); Potassium 4.3 mmol/L (3.5-5.1); Sodium 140 mmol/L (136-145); Total Bilirubin 0.7 mg/dL (0.15-1.2); Total Protein 6.2 g/dL (6.6-8.7)
[2021-05-10] MEDS: morphine 4 mg/mL SDV 1 mL 2 MG IVP ×2 (11:55→22:53)
[2021-05-10] MEDS: aspirin 81 mg Chew Tablet 324 MG PO (11:56)
--- NOTE | 2021-05-10 12:45 | ECG_ITS ---
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 Measurements Intervals [place] Rate: 67 P: 78 [place]: 151 QRS: 56 QRSD: 77 T: 68 QT: 392 QTc: 416 Interpretive Statements SINUS RHYTHM POSSIBLE LEFT ATRIAL ENLARGEMENT [-0.1mV P WAVE IN V1/V2] Compared to ECG 05/10/2021 10:42:52 No significant changes Electronically Signed On 05-10-2021 20:11:50 CDT by Jerod Mccord M.D. [id number]
--- NOTE | 2021-05-10 13:45 | P.HP_ITS ---
Providers/Chief Complaint Admitting Physician: Diony Ray MD Primary Care Provider: Vanessa Lomas Chief Complaint: CHEST PAIN History of Present Illness Stan Maynard is a 71 year old male who presents to the emergency department with complaints of chest discomfort, central chest with a grabbing sensation that brought him into the emergency department. It possibly radiates to the neck but patient reports he has neck pain all the time so it is hard to tell. He was at rest when this occurred. He denies any previous history of chest discomfort. No nausea or vomiting. Started around 730. Reports it is got so much better that it is hardly there anymore. No prior history of coronary disease. Review of Systems General: Reports: 10 or more systems reviewed and unremarkable except in HPI and below Const: Denies: fever(s) or chills Eyes: Denies: change in vision ENMT: Denies: throat pain Card: Reports: chest pain; Denies: palpitations Resp: Denies: dyspnea GI: Denies: abdominal pain, nausea or vomiting : Denies: flank pain Musc: Reports: neck pain Skin/Breast: Denies: rash Neuro: Denies: headache(s) Psych: Denies: anxiety or depression Endo: Denies: polyuria Patrick/Lymph: Denies: easy bruising All/Imm: Denies: urticaria Medications/Allergies Home Medications Medication Instructions Recorded Confirmed Last Taken Type duloxetine 30 mg capsule,delayed 30 mg PO DAILY 08/16/20 05/10/21 Unknown History release sprinkle hydroxyzine HCl 25 mg tablet 25 mg PO TID PRN 08/16/20 05/10/21 Unknown History megestrol 40 mg tablet 40 mg PO BID 08/16/20 05/10/21 Unknown History pantoprazole 40 mg tablet,delayed 40 mg PO DAILY 08/16/20 05/10/21 Unknown History release alprazolam [Xanax] 0.5 mg PO BID PRN 05/10/21 05/10/21 Unknown History Allergies Allergy/AdvReac Type Severity Reaction Status Date / Time azithromycin Allergy Unknown Verified 12/12/19 14:12 fentanyl Allergy ALGY-Rash Verified 12/12/19 14:12 gabapentin Allergy ADR-Gastrointestinal Verified 09/24/20 18:31 Upset oxycodone Allergy ADR-Nausea Verified 12/12/19 14:11 PFSH Acute PFSH: Medical History (Updated 05/10/21 @ 13:54 by Diony Ray MD) Abnormal EKG Benign essential HTN Carotid artery disease COPD (chronic obstructive pulmonary disease) Depression Emphysema of lung Frequent falls GERD (gastroesophageal reflux disease) History of stroke Leg pain Low back pain Memory loss Nausea & vomiting Near syncope Surgical History (Updated 05/10/21 @ 13:53 by Diony Ray MD) Gallstones History of back surgery History of endarterectomy Removal of plaque in artery History of knee surgery Right History of neck surgery Family History Sister Diabetes Other Cancer Gallstones Denies family history of Anesthesia complication Bleeding disorder Social History Smoking and tobacco status: current every day smoker cigarettes Second hand smoke exposure: Yes Alcohol intake: never Adopted: No Caregiver/support person: Yes Lives independently: Yes Household members: none Housing: Assisted Living Facility Marital status: Highest education level completed: High School Graduate service: No Current occupational status: retired Current occupational exposures/hazards: No Pets and animals: No History of recent travel: No Sexually active: Yes Current gender identity: Male Rupinder/Cheondoism: Congregational Special rupinder needs: No Agree to transfusion: No Financial difficulty paying for basics: Decline to Answer Vitals/I&O/Wt Last Vital Signs Temp 97.0 F L 05/10/21 10:45 Pulse 66 05/10/21 12:34 Resp 17 05/10/21 12:34 BP 141/82 05/10/21 12:34 Pulse Ox 94 05/10/21 12:34 Weight last 48 hrs Weight 54.431 kg Physical Exam Narrative: EXAM NARRATIVE: General exam is a white male, reporting mild chest discomfort in no distress HEENT: Atraumatic and normocephalic. Pupils equally round. Oropharynx clear. Neck is supple no lymphadenopathy or thyromegaly. Slight tenderness left side of neck to palpation Cardiovascular regular rate and rhythm with a 2/6 systolic murmur. No S3 or S4 Lungs clear but with diminished breath sounds bilaterally. No wheezing. Abdomen is soft with positive bowel sounds. No obvious organomegaly is deferred Extremities no cyanosis clubbing or edema, cap refill less than 2 seconds. Pulses difficult to feel. Feet cool. Skin no rash Neuro no obvious focal deficits Data : 05/10/21 10:58 05/10/21 10:58 Other data: EKG demonstrates a heart rate of 74, regular and sinus with no acute changes. Left atrial enlargement is suggested by biphasic P wave in V1. LFTs are normal Initial troponin XX 9 Albumin 4.3 Calcium 9.3 Chest x-ray with suggestion of emphysema but no infiltrate atherosclerosis noted in the aorta. A&P Assessment and plan (1) Chest pain: Serial troponins Nitroglycerin ointment Initiate aspirin Initiate statin secondary to history of significant atherosclerotic disease Monitor for any significant recurrence. If significant increase in troponin fully anticoagulate, and placed on beta-bloc ker Morphine for breakthrough pain If no significant elevation in troponin consider nuclear stress test tomorrow Check echocardiogram Status: Acute (2) Tobacco dependency: Encourage abstinence. Counseled 3 to 5 minutes Status: Acute (3) GERD (gastroesophageal reflux disease): Continue proton pump inhibitor Status: Acute Additional A&P Information Carotid artery disease with history of carotid endarterectomy. History of vertebral stenosis on the right as well. Initiate statin. Check lipid profile in the morning. Full code Lovenox for DVT prophylaxis Attestations Medical Necessity Statement*: Will need less than 2 midnight stay for e valuation of chest discomfort. Time Spent in Patient Care: Greater than 35 minutes Coding Level of Care Code Acute Nitrocellulose Operator for Chg Fwd Diagnoses Chest pain R07.9 Tobacco dependency F17.200 GERD (gastroesophageal reflux disease) K21.9
[2021-05-10 13:59] LABS: Troponin 5 2HR 22.34 ng/L (0-15); Troponin 5 2HR Delta -6.66 ABS# (0-10)
--- NOTE | 2021-05-10 14:00 | ECG_ITS ---
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 Interpretive Statements NAME OF STUDY: LEXISCAN SESTAMIBI STRESS TEST INDICATION: Chest Pain PROCEDURE: At the baseline, the EKG revealed normal sinus rhythm with a poor R wave progression. Possible old septal myocardial infarction. The baseline blood pressure was 153/87 mm Hg with a heart rate of 73 beats/min. Lexiscan was infused over a period of 20 seconds. A total of 0.4 milligrams of Lexiscan was infused. The stress phase was continued for a total of 5 minutes. Heart rate at the end of the stress phase was 106 with a blood pressure 152/65. The EKG at the peak infusion revealed no significant changes. Sestamibi was injected 20 seconds after the Lexiscan infusion. Blood pressure at the end of the recovery phase was 122/65 with a heart rate of 93 per minute. CONCLUSION: 1. No significant EKG changes with the LexiScan infusion 2. No LexiScan induced chest pain or cardiac arrhythmia 3. Normal blood pressure and heart rate response 4. Sestamibi/sestamibi perfusion scan pending; see separate report. Electronically Signed On 05-11-2021 13:09:44 CDT by Jerod Mccord M.D. [id number]
--- NOTE | 2021-05-10 14:25 | PC.NURSE ---
3 loose tablets found in patients pocket by ER Nurse Elva BOCANEGRA this nurse had medications verified by pharmacist and place medications in Home meds been in [facility] in med room
[2021-05-10 14:33] LABS: Thyroid Stimulating Hormone 1.61 uIU/mL (0.27-4.20)
[2021-05-10] MEDS: enoxaparin 40 mg/0.4 mL Syringe SUBCUT (15:44)
[2021-05-10] MEDS: ALPRAZolam 0.5 mg Tablet PO ×2 (15:44→19:44)
[2021-05-10] MEDS: nitroglycerin 1 gm/inch oint Pkt 1 INCH TOPICAL (16:38)
--- NOTE | 2021-05-10 16:45 | ECG_ITS ---
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 Measurements Intervals [place] Rate: 64 P: 71 MD: 152 QRS: 90 QRSD: 73 T: 83 QT: 388 QTc: 402 Interpretive Statements SINUS RHYTHM Compared to ECG 05/10/2021 12:23:25 No significant changes Electronically Signed On 05-10-2021 20:13:57 CDT by Jerod Mccord M.D. [email or web address] Mediaocean springs hospitalOctromercy health st[facility] joseph warren hospitalDilon Technologies/store/OM/[id number]
--- NOTE | 2021-05-10 16:55 | PC.NURSE ---
spoke with Dr garcia about patient nicotine patch ordered to start tomorrow. instructions received to start now
[2021-05-10 17:36] LABS: Troponin 5 6HR 22.79 ng/L (0-15)
[2021-05-10 18:06] LABS: Troponin 5 6HR Delta -6.21 ng/L (0-12)
[2021-05-10] MEDS: nicotine 21 mg Patch 1 PATCH TRANSDERMA (18:07)
[2021-05-10] MEDS: atorvastatin 40 mg Tablet PO (19:24)
--- NOTE | 2021-05-10 19:46 | PC.NURSE ---
During shift change, Baylee RN, Rae RN, and myself in room with patient due to patient wanting to leave. Patient is currently able to answer correctly to person, place, time and situation, however patient is know to have episodes of confusion. Bed alarm is set. Patient states he has stuff he needs to get done at home. After teaching, patient decided to stay. Patient is asking for Xanax. It is not time for BID PRN Xanax yet. Dr. Babcock notified. One time Xanax ordered.
--- NOTE | 2021-05-10 19:57 | PC.NURSE ---
Patient asked that SCDs be removed. Patient is refusing SCDs. Patient was educated on them.
--- NOTE | 2021-05-10 20:04 | PC.NURSE ---
Patient is currently laying in bed with eyes closed. Will round on patient frequently. Bed alarm is still set.
[2021-05-10] MEDS: ondansetron 2 mg/ML SDV 2 mL 4 MG IVP (22:53)
--- NOTE | 2021-05-10 23:56 | PC.NURSE ---
Patient is currently laying in bed with eyes closed. Will monitor.
--- NOTE | 2021-05-11 | NMCV_ITS ---
NM katelynn perf SPECT r/s* [id number] Stan Maynard Age: 71 Gender: M : 1950 Exam Date: 05/11/2021 07:10 Ordering Phys: Diony Ray MD Technologist: SHAE Chavez Exam Location: [facility] Indications: CHEST PAIN STRESS TEST Please see separate stress test report in [facility] for full findings IMAGE PROTOCOL Rest/Stress 1 Lexiscan Day Radiopharmaceutical Dose (mCi) Administration Site Administered by Rest: Tc-99m 11.0 IV SHAE Sidhu Sestamibi Stress:Tc-99m 33.0 IV SHAE Sidhu Sestamibi Rest: 11-May-2021 60 Discovery 630 Stress: 11-May-2021 30 Discovery 630 0.4mg Lexiscan. Supine position only as patient was unable to lay prone. SPECT RESULTS Technical Quality: Good Raw Data Analysis: Normal Image Corrections: No attenuation or motion correction applied Summed Stress Score: 0 Summed Rest Score: 0 Summed Difference Score: 0 PERFUSION FINDINGS Fairly uniform myocardial tracer uptake with no significant perfusion abnormalities. FUNCTIONAL RESULTS (calculated via Gated SPECT) Stress Image LV EF (%): 89 Stress EDV (mL):56 TID: 1.12 Stress ESV (mL):6 FUNCTIONAL FINDINGS: Segmental wall motion analysis revealing no gross wall motion abnormalities. IMPRESSIONS 1. Unremarkable myocardial perfusion imaging 2. Normal LV ejection fraction of 89%. 3. LV wall motion analysis revealing no gross wall motion normalities. 4. Normal LV volume No significant coronary ischemia, based on the above findings Dr Jerod Mccord MD [facility] (Electronically Signed) Final Date: 11 May 2021 13:05 S
--- NOTE | 2021-05-11 01:45 | PC.NURSE ---
Patient is refusing nitropaste due to headache. VSS. Patient has not c/o of any chest pain. Dr. Babcock notified of refusal.
[2021-05-11] MEDS: acetaminophen 325 mg Tablet 650 MG PO ×2 (01:47→09:43)
--- NOTE | 2021-05-11 02:04 | PC.NURSE ---
So far throughout shift, patient has been calm, cooperative, and oriented.
[2021-05-11 03:38] VITALS: BP 96/69; PULSE 63; RESP 13; O2SAT 96
[2021-05-11 04:05] LABS: Basophils # 0.1 10^3/uL (0.0-0.1); Basophils % 1.1 %; Eosinophils # 0.1 10^3/uL (0.0-0.8); Eosinophils % 1.6 %; Hematocrit 44.3 % (42.0-52.0); Hemoglobin 14.1 g/dL (11.7-16.6); Lymphocytes # 2.3 10^3/uL (0.8-4.8); Lymphocytes % 37.3 %; Mean Corpuscular HGB Conc 31.8 g/dL (30.0-36.0); Mean Corpuscular Hemoglobin 31.3 pg (28.0-34.0); Mean Corpuscular Volume 98.4 fL (80-94); Mean Platelet Volume 11.9 fL (7.4-10.4); Monocytes # 0.8 10^3/uL (0.2-0.9); Monocytes % 12.6 %; Neutrophils # 2.94 10^3/uL (1.8-7.7); Neutrophils % 47.1 %; Nucleated Red Blood Cells % 0 %; Platelet Count 250 10^3/cmm (130-400); Red Cell Distribution Width 15.4 % (12.1-15.1); White Blood Count 6.3 10^3/uL (4.0-10.0)
[2021-05-11] MEDS: ondansetron 2 mg/ML SDV 2 mL 4 MG IVP (04:06)
[2021-05-11 04:16] VITALS: PULSE 59
--- NOTE | 2021-05-11 04:18 | PC.NURSE ---
Patient c/o headache and nausea. PRN Zofran given. Patient has not complained of any chest pain.
[2021-05-11 04:26] LABS: Alanine Aminotransferase 23 U/L (0-41); Albumin Level 3.7 g/dL (3.5-5.2); Alkaline Phosphatase 111 IU/L (40-130); Aspartate Amino Transferase 29 U/L (0-40); Blood Urea Nitrogen 21 mg/dL (8-23); Calcium 8.8 mg/dL (8.5-10.5); Carbon Dioxide 22 mmol/L (22-29); Chloride 104 mmol/L (98-107); Glomerular Filtration Rate 111.8 mL/min (90-130); Glucose 81 mg/dL (65-115); Osmolality Calculated 286 mOsm/kg (285-295); Sodium 137 mmol/L (136-145); Total Bilirubin 0.5 mg/dL (0.15-1.2); Total Protein 5.7 g/dL (6.6-8.7)
[2021-05-11 04:27] LABS: Anion Gap 14.9 (5-19); Cholesterol 155 mg/dL (0-200); HDL Cholesterol 43 mg/dL (60-100); LDL Cholesterol Calculated 94 mg/dL (50-129); LDL HDL Ratio 2.19 RATIO (0.00-3.22); Potassium 3.9 mmol/L (3.5-5.1); Triglycerides 92 mg/dL (0-150)
[2021-05-11 05:44] VITALS: RESP 16
[2021-05-11] MEDS: morphine 4 mg/mL SDV 1 mL 2 MG IVP (05:44)
[2021-05-11] MEDS: regadenoson 0.4 Mg/5 ml Syringe IVP (08:00)
[2021-05-11 08:26] VITALS: BP 122/64; PULSE 73
[2021-05-11] MEDS: pantoprazole DR 40 mg Tablet PO (09:40)
[2021-05-11] MEDS: duloxetine 30 mg Capsule PO (09:40)
--- NOTE | 2021-05-11 10:40 | PC.CHAP ---
Pastoral Care Encounter/Spiritual Assessment Type of Contact [] Declined senior scheduler visit [] Patient/Family/Request visit [] Outpatient visit [] Follow-up visit [] Physician referral [] Code/Alert [x] Routine visit [] Staff referral [] Actively dying [] Patient sleeping [] Family support [] [] Out of room [] Palliative care [] [x] Receiving care in room [] Pre-surgical visit [] Trauma [] Long length of stay [] ICU visit [] Other: Relational/Emotional Strength [x] Patient feels connected with others/family/visitors/staff [] Distress [] Loneliness/isolation [] Abandonment Spirituality of Patient [x] Person of Rupinder [] Attends Faith of their Rupinder [x] Believes in Prayer [] Reads Bible or Amish materials [] There are Spiritual issues to be addressed Photogrammetric Surveyor Interventions [x] Prayer [x] Active listening [x] Non-anxious presence [c] Spiritual/emotional support [] Crisis/trauma care [c] Spiritual counseling [] Bereavement support [] Provided bereavement packet [] Provided Bible/devotional materials [] Provided toy/stuffed animal, coloring book to patient or family member [] Provided Communion [] Anointing/[place] [] Salvation [c] Completed spiritual assessment [] Other: Impact on Illness or Injury [] Angry [] Fearful [c] Anxious [] Often cries [] Exhaustion [] Unable to work [] Unable to attend muslim [] Unable to walk/stand [] Unable to read [] Unable to drive [] Unable to eat/drink [] Unable to sleep [] Unable to be with family [] Patient intubated [] Other: Summary has test waiting on doctors report thinks he will go home if tests are OK, has a good attitude feels good Time spent with patient 10 mins
[2021-05-11] MEDS: nitroglycerin 1 gm/inch oint Pkt 1 INCH TOPICAL (10:49)
--- NOTE | 2021-05-11 12:02 | PC.RESP ---
SMOKING CESSATION AND PULMONARY REHAB INFORMATION SENT TO PATIENT.
[2021-05-11 12:09] VITALS: BP 131/75; PULSE 70; RESP 18; TEMP 36.7; O2SAT 97
--- NOTE | 2021-05-11 13:35 | P.DS_ITS ---
Discharge Providers Date of Admission: 05/10/21 11:45 Date of Discharge: May 11, 2021 Attending Provider at Admission: Diony Ray MD Attending Provider at Discharge: Diony Ray MD Primary Care Provider: Vanessa Lomas Diagnoses at Discharge Discharge Diagnosis (1) Chest pain: Status: Acute (2) Tobacco dependency: Status: Acute (3) GERD (gastroesophageal reflux disease): Status: Acute Reason for Visit Reason for Visit: CHEST PAIN Hospital Course Hospital Course Mr. Rojo presented to the hospital with atypical chest discomfort. He has a past history of vascular disease but no particular coronary disease. Laboratory was relatively unremarkable. EKG was nonischemic. Troponin slightly elevated but no significant troponin, with this decreasing on second check. TSH was checked and normal. He had no recurrence of discomfort. Preliminary echocardiogram demonstrated preserved EF, final report pending. No severe valvular abnormalities seen preliminarily. Nuclear stress test was performed demonstrating no reversible ischemia and no evidence of coronary ischemia. As he was chest discomfort free and had a normal stress test he will be discharged home. Statin and aspirin were added secondary to his known carotid artery disease. He will follow-up closely with his primary care provider. Physical Exam Narrative: EXAM NARRATIVE: General exam no apparent distress Cardiovascular regular rate and rhythm without murmur Lungs clear Abdomen is soft with positive bowel sounds Extremities no cyanosis clubbing or edema Discharge Data Data Completed and Pending: Completed Studies During Hospitalization Category Date Time Status Sestamibi Stress Test Request Routi ne Exams 05/10/21 14:00 Completed XR chest 1V edgar ble [id number] Stat Exams 05/10/21 10:45 Completed NM katelynn perf SPECT r/s* [id number] Routin e Nuc Med 05/11/21 Completed Pending at discharge Category Date Time Status CV echo complete* [id number] Routine Ultrasound 05/11/21 13:54 Taken Labs from last 24 hours 05/11/21 05/11/21 05/11/21 03:44 03:44 03:44 WBC 6.3 RBC 4.50 Hgb 14.1 Hct 44.3 MCV 98.4 H MCH 31.3 MCHC 31.8 RDW 15.4 H Plt Count 250 MPV 11.9 H Neut % (Auto) 47.1 Lymph % (Auto) 37.3 [place] % (Auto) 12.6 Eos % (Auto) 1.6 Baso % (Auto) 1.1 Neut # (Auto) 2.94 Lymph # (Auto) 2.3 [place] # (Auto) 0.8 Eos # (Auto) 0.1 Baso # (Auto) 0.1 Nucleated RBC % (a uto) 0 Nucleated RBCs # 0.0 Sodium 137 Potassium 3.9 Chloride 104 Carbon Dioxide 22 Anion Gap 14.9 BUN 21 Creatinine 0.7 GFR Calculation 111.8 Glucose 81 Calculated Osmolal ity 286 Calcium 8.8 Total Bilirubin 0.5 AST 29 ALT 23 Alkaline Phosphata se 111 Troponin T 120 Min daniella Delta Troponin T Troponin T Hi Sens 6Hr Troponin T Hi Sens 6Hr Delta Total Protein 5.7 L Albumin 3.7 Globulin 2.0 Triglycerides 92 Cholesterol 155 LDL Cholesterol, C alc 94 HDL Cholesterol 43 L LDL/HDL Ratio 2.19 Cholesterol/HDL Ra jas 3.60 TSH 05/10/21 05/10/21 05/10/21 17:03 13:24 10:58 WBC RBC Hgb Hct MCV MCH MCHC RDW Plt Count MPV Neut % (Auto) Lymph % (Auto) [place] % (Auto) Eos % (Auto) Baso % (Auto) Neut # (Auto) Lymph # (Auto) [place] # (Auto) Eos # (Auto) Baso # (Auto) Nucleated RBC % (a uto) Nucleated RBCs # Sodium Potassium Chloride Carbon Dioxide Anion Gap BUN Creatinine GFR Calculation Glucose Calculated Osmolal ity Calcium Total Bilirubin AST ALT Alkaline Phosphata se Troponin T 120 Min daniella 22.34 H Delta Troponin T -6.66 L Troponin T Hi Sens 6Hr 22.79 H Troponin T Hi Sens 6Hr Delta -6.21 L Total Protein Albumin Globulin Triglycerides Cholesterol LDL Cholesterol, C alc HDL Cholesterol LDL/HDL Ratio Cholesterol/HDL Ra jas TSH 1.61 Vitals: Last Vital Signs Temp 98.0 F 05/11/21 12:09 Pulse 70 05/11/21 12:09 Resp 18 05/11/21 12:09 BP 131/75 05/11/21 12:09 Pulse Ox 97 05/11/21 12:09 Discharge Plan Discharge Patient Disposition: Home Condition: Stable Prescriptions: New aspirin 325 mg Tablet,Delayed Release (Dr/Ec) 325 mg PO DAILY Qty: 30 RF: 0 atorvastatin 40 mg Tablet 40 mg PO BEDTIME Qty: 30 RF: 0 Continued megestrol 40 mg tablet 40 mg PO BID RF: 0 pantoprazole [Protonix] 40 mg tablet,delayed release (DR/EC) 40 mg PO DAILY RF: 0 duloxetine 30 mg capsule, delayed rel sprinkle 30 mg PO DAILY RF: 0 hydroxyzine HCl 25 mg tablet 25 mg PO TID PRN (Reason: Anxiety) RF: 0 Xanax 0.5 mg tablet 0.5 mg PO BID PRN (Reason: Anxiety) RF: 0 Discharge Orders: Discharge Order (Routine); Ordered 05/11/21 Ordered By: Diony Ray Referrals: Vanessa Lomas [Primary Care Provider] - 4-7 days Discharge Diet: Cardiac Discharge Activity: Increase activity as tolerated Patient Instructions: Opioid Safety Activity Restrictions/Additional Instructions: Take all medicine as prescribed Follow-up with primary care provider 3 to 5 days. Return for any concerns Discharge Attestations Time Spent in Discharge Care*: greater than 30 min Quality Metrics Clinical Quality Measures During this hospital stay, did patient experience: None Coding Level of Care Code Acute Chg [facility] note Diagnoses Chest pain R07.9 Tobacco dependency F17.200 GERD (gastroesophageal reflux disease) K21.9
--- NOTE | 2021-05-11 13:54 | USCV_ITS ---
Stan Maynard Age: 71 Gender: M : 1950 Exam Date: 05/11/2021 06:34 Ordering Phys: Diony Ray MD Technologist: Velvet Reinoso Exam Location: [facility] Indication: CHEST PAIN BP: 96 / 69 HR: 63 Rhythm: Sinus Technical Quality: Technically difficult study MEASUREMENTS (Male / Female) Normal Values 2D ECHO LV Diastolic Diameter PLAX 2.7 cm 4.2 - 5.9 / 3.9 - 5.3 cm LV Systolic Diameter PLAX 1.8 cm IVS Diastolic Thickness 1.3 cm 0.6 - 1.0 / 0.6 - 0.9 cm IVS Systolic Thickness 1.7 cm LVPW Diastolic Thickness 1.4 cm 0.6 - 1.0 / 0.6 - 0.9 cm LVPW Systolic Thickness 1.7 cm RV Chamber Size 3.1 cm LVOT Diameter 2.0 cm LV Ejection Fraction 2D Teich 64.7 % LV Ejection Fraction MOD 2C 59.2 % LV Ejection Fraction 2C AL 57.7 % LA Diameter 1.7 cm LA Width 2.9 cm LA Height 2.6 cm RA Width 2.8 cm RA Height 2.5 cm Aorta at Sinotubular Diameter 2.5 cm M-MODE Aortic Annulus Diameter 2.8 cm LA Ao Ratio MM 0.6 MV E Point Septal Separation 0.2 cm DOPPLER AV Peak Velocity 119.0 cm/s LVOT Peak Velocity 120.0 cm/s AV Area Cont Eq vti 3.2 cm squared AV Area Cont Eq pk 3.2 cm squared MV Area PHT 5.0 cm squared Mitral E to A Ratio 0.8 MV E' Velocity 49.0 cm/s Mitral E to MV E' Ratio 9.1 Mitral E to LV E' Lateral Ratio 8.2 Mitral E to LV E' Septal Ratio 10.3 TR Peak Velocity 237.5 cm/s TR Peak Gradient 22.6 mmHg TV Peak E Velocity 45.0 cm/s Right Atrial Pressure 3.0 mmHg Pulmonary Artery Systolic Pressu 25.6 mmHg PV Peak Velocity 104.0 cm/s RV Acceleration Time 0.1 s RV Ejection Time 0.3 s RV AcT/ET 0.4 FINDINGS Left Ventricle Normal left ventricular size and systolic function, EF 66 %. Grade I/IV diastolic dysfunction (abnormal relaxation filling pattern), normal to mildly elevated filling pressures. Mild left ventricular hypertrophy. No regional wall motion abnormalities. Right Ventricle The right ventricle is normal in size and function. Right Atrium The right atrium is normal in size. Left Atrium The left atrium is normal in size. Mitral Valve Trace mitral valve regurgitation. Aortic Valve Minimally thickened aortic valve. Tricuspid Valve Mild tricuspid valve regurgitation. Estimated pulmonary artery peak systolic pressure was 26 mm of Hg. Pulmonic Valve Pulmonic valve not well visualized. Pericardium Normal pericardium without effusion. Aorta Normal ascending aorta dimension. CONCLUSIONS Normal left ventricular size and systolic function, EF 66 %. Grade I/IV diastolic dysfunction (abnormal relaxation filling pattern), normal to mildly elevated filling pressures. Mild left ventricular hypertrophy. No regional wall motion abnormalities. Minimally thickened aortic valve. Trace mitral valve regurgitation. Mild tricuspid valve regurgitation. Estimated pulmonary artery peak systolic pressure was 26 mm of Hg. There is no pericardial effusion. There are no intracardiac masses. No previous study is available for comparison. Dr Jerod Mccord MD [facility] (Electronically Signed) Final Date: 11 May 2021 13:53 S
[2021-05-11 13:56] VITALS: BP 131/75; PULSE 70; RESP 18; TEMP 36.7; O2SAT 97
== END 2021-05-11 15:20 | disposition home or self-care (01) ==
LOC: ER 10:50 → CSU 12:48
PROVIDERS: Admitting Provider Internal Medicine; Emergency Provider Family Medicine; PCP Nurse Practitioner Family; Visit Provider Internal Medicine
DX: R07.89 Other chest pain (principal); F17.210 Nicotine dependence, cigarettes, uncomplicated; K21.9 Gastro-esophageal reflux disease without esophagitis; I10 Essential (primary) hypertension; I25.10 Atherosclerotic heart disease of native coronary artery without angina pectoris; F32.9 Major depressive disorder, single episode, unspecified; J43.9 Emphysema, unspecified; Z91.81 History of falling
CPT/HCPCS: 36415; 71045; 78452; 80053; 80061; 84443; 84484; 85025; 93005; 93017; 93306; 96365; 96372; 96375; 99285; A9500; G0378; J1650; J2270; J2405; J2785

== ENCOUNTER 2022-08-09 16:49 | Observation (INO) | payer MEDICARE, MEDICAID, SELFPAY ==
[2022-08-09 16:51] VITALS: BP 143/98; PULSE 73; RESP 18; TEMP 37.2; O2SAT 94; BMI 18.6
--- NOTE | 2022-08-09 17:05 | XRR_ITS ---
PROCEDURE INFORMATION: Exam: XR Chest Exam date and time: 08/09/2022 5:42 PM Age: 72 years old Clinical indication: Dyspnea and shortness of breath; Additional info: Weakness TECHNIQUE: Imaging protocol: Radiologic exam of the chest. Views: 1 view. COMPARISON: CR XR chest 1V portable [id number] 05/10/2021 10:52 AM FINDINGS: Lungs: Stable COPD . Pleural spaces: Unremarkable. No pleural effusion. No pneumothorax. Heart/Mediastinum: Unremarkable. No cardiomegaly. Vasculature: Calcification of the thoracic aorta and/or great vessels consistent with atherosclerotic vessel disease. Bones/joints: Unremarkable. XR/XR chest 1V portable [id number] IMPRESSION: Stable COPD .
--- NOTE | 2022-08-09 17:05 | CTR_ITS ---
PROCEDURE INFORMATION: Exam: CT Head Without Contrast Exam date and time: 08/09/2022 5:17 PM Age: 72 years old Clinical indication: Altered mental status/memory loss and dizziness; Confusion or disorientation; Patient HX: Found down 4 days ago; Additional info: Dizzyness TECHNIQUE: Imaging protocol: Computed tomography of the head without contrast. Radiation optimization: All CT scans at this facility use at least one of these dose optimization techniques: automated exposure control; mA and/or kV adjustment per patient size (includes targeted exams where dose is matched to clinical indication); or iterative reconstruction. COMPARISON: CT head wo con* [id number] 09/24/2020 7:28 PM RADIATION DOSE METRICS: Total DLP (mGy-cm): 1059.4 FINDINGS: Brain: Severe calcified intracranial atherosclerotic vessel disease. Interval worsening of mild to moderate cerebral atrophy and ischemic leukoencephalopathy. 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 Cerebral ventricles: No ventriculomegaly. Paranasal sinuses: Visualized sinuses are unremarkable. No fluid levels. Mastoid air cells: Visualized mastoid air cells are well aerated. Bones/joints: Unremarkable. No acute fracture. Soft tissues: Unremarkable. CT/CT head wo con* [id number] IMPRESSION: No acute intracranial findings.
--- NOTE | 2022-08-09 17:06 | ECG_ITS ---
[facility] Test Date: 2022-08-09 Pat Name: Stan Maynard Department: Room: Gender: Male Environmental Officer: : 1950 Requested By: Tanvi Monreal Order Number: [id number] Mary MD: Jerod Mccord M.D. Measurements Intervals [place] Rate: 63 P: 72 TN: 157 QRS: 48 QRSD: 63 T: 75 QT: 385 QTc: 397 Interpretive Statements SINUS RHYTHM POSSIBLE LEFT ATRIAL ENLARGEMENT [-0.1mV P-WAVE IN V1/V2] LOW QRS VOLTAGE IN EXTREMITY LEADS [QRS DEFLECTION < 0.5 mV IN LIMB LEADS] ANTEROSEPTAL MYOCARDIAL INFARCTION , OF INDETERMINATE AGE [40+ ms Q WAVE IN V1-V4] Compared to ECG 05/10/2021 18:19:52 Low QRS voltage now present Myocardial infarct finding now present Electronically Signed On 08-09-2022 20:45:50 CDT by Jerod Mccord M.D. [id number]
--- NOTE | 2022-08-09 17:07 | W.ED.WEAKNES ---
HPI - Weakness General: Chief complaint: Weakness Stated complaint: WEAKNESS Time Seen by Provider: 08/09/22 16:57 Source: patient and EMS Mode of arrival: EMS Limitations: no limitations History of Present Illness: 72-year-old male is here from home for generalized weakness. He states that he had been in the floor for couple days states he has been too weak to walk he has had an increasing cough over the last 4 weeks he is very cachectic appearing here. He states he feels like he no longer can take care of himself he does live at home alone. Associated symptoms: Denies chest pain, dysuria, easy bruising, headache(s), nausea or vomiting Review of Systems Const: Reports: fatigue Eyes: Denies: blurry vision or eye discomfort ENMT: Denies: throat pain or dental pain Card: Denies: chest pain Resp: Reports: dyspnea and non-productive cough GI: Denies: abdominal pain, nausea, vomiting or diarrhea : Denies: dysuria Musc: Denies: neck pain or back pain Skin/Breast: Denies: rash Neuro: Denies: headache(s) Psych: Denies: depression Patrick/Lymph: Denies: easy bruising All/Imm: Denies: urticaria PFSH ED PFSH: Medical History Abnormal EKG Benign essential HTN Carotid artery disease COPD (chronic obstructive pulmonary disease) Depression Emphysema of lung Frequent falls GERD (gastroesophageal reflux disease) History of stroke Leg pain Low back pain Memory loss Nausea & vomiting Near syncope Surgical History Gallstones History of back surgery History of endarterectomy Removal of plaque in artery History of knee surgery Right History of neck surgery Family History Sister Diabetes Other Cancer Gallstones Denies family history of Anesthesia complication Bleeding disorder Social History Smoking and tobacco status: current every day smoker cigarettes Second hand smoke exposure: Yes Alcohol intake: never Adopted: No Caregiver/support person: Yes Lives independently: Yes Household members: none Housing: Assisted Living Facility Marital status: Highest education level completed: High School Graduate service: No Current occupational status: retired Current occupational exposures/hazards: No Pets and animals: No History of recent travel: No Sexually active: Yes Current gender identity: Male Rupinder/Oriental Orthodox: Latter Day Special rupinder needs: No Agree to transfusion: No Financial difficulty paying for basics: Decline to Answer Physical Exam Const: COMMON NORMALS: patient oriented x3 GENERAL APPEARANCE: ill appearing and frail appearing HENMT: COMMON NORMALS: normocephalic and atraumatic HEAD & SCALP: normocephalic and atraumatic Eye: COMMON NORMALS: Equal, round and reactive pupils present and EOMs intact bilaterally PUPIL: Yes Equal, round and reactive pupils present Neck/C-Spine: COMMON NORMALS: full ROM and supple Chest: COMMONS NORMALS: normal inspection of the chest and normal palpation of entire chest wall Resp: COMMON NORMALS: normal respiratory effort, No retractions and No use of accessory muscles AUSCULTATION: rales Cardio: COMMON NORMALS: regular rate, regular rhythm and No murmurs present (Cardio) RATE: regular rate RHYTHM: regular rhythm GI: COMMON NORMALS: Normal to inspection, nondistended, normoactive bowel sounds present, Soft to palpation, non-tender and no masses PALPATION: Yes Soft to palpation Extremity: COMMON NORMALS: normal to inspection and full ROM Neuro: COMMON NORMALS: patient oriented x3, moves all extremities and no focal motor deficits Psych: COMMON NORMALS: mental status grossly normal, Normal thought process present and cooperative THOUGHT PROCESS: Normal thought process present Skin: COMMON NORMALS: no rashes or lesions noted and no wounds GENERAL SKIN EXAM: no rashes or lesions noted Course Vital Signs: Vital signs: Vital Signs Temperature 99 F 08/09/22 16:51 Pulse Rate 70 08/09/22 17:48 Respiratory Rate 25 H 08/09/22 17:48 Blood Pressure 147/83 08/09/22 17:48 Pulse Oximetry 92 08/09/22 17:48 Oxygen Delivery Me thod 08/09/22 17:48 MDM - Weakness Medical Decision Making Patient presents here with generalized weakness he also is COVID-positive. He has not been able ambulate due to severe weakness he does appear quite cachectic here as well. He is not required any oxygen x-ray shows no signs of pneumonia spoke to hospitalist and will admit at this time. Lab Data : 08/09/22 17:38 08/09/22 17:38 Radiology Impressions Chest X-Ray 08/09/22 17:05 IMPRESSION: Stable COPD . Head CT 08/09/22 17:05 IMPRESSION: No acute intracranial findings. Laboratory Results WBC 12.8 10^3/uL (4.0-10.0) H 08/09/22 17:38 RBC 5.92 10^6/uL (4.1-5.3) H 08/09/22 17:38 Hgb 17.4 g/dL (11.7-16.6) H 08/09/22 17:38 Hct 55.1 % (42.0-52.0) H 08/09/22 17:38 MCV 93.1 fl (80-94) 08/09/22 17:38 MCH 29.4 pg (28.0-34.0) 08/09/22 17:38 MCHC 31.6 g/dL (30.0-36.0) 08/09/22 17:38 RDW 15.9 % (12.1-15.1) H 08/09/22 17:38 Plt Count 137 10^3/cmm (130-400) 08/09/22 17:38 MPV 12.8 fL (7.4-10.4) H 08/09/22 17:38 Neut % (Auto) 71.9 % 08/09/22 17:38 Lymph % (Auto) 13.1 % 08/09/22 17:38 [place] % (Auto) 13.7 % 08/09/22 17:38 Eos % (Auto) 0.2 % 08/09/22 17:38 Baso % (Auto) 0.2 % 08/09/22 17:38 Neut # (Auto) 9.20 10^3/uL (1.8-7.7) H 08/09/22 17:38 Lymph # (Auto) 1.7 10^3/uL (0.8-4.8) 08/09/22 17:38 [place] # (Auto) 1.8 10^3/uL (0.2-0.9) H 08/09/22 17:38 Eos # (Auto) 0.0 10^3/uL (0.0-0.8) 08/09/22 17:38 Baso # (Auto) 0.0 10^3/uL (0.0-0.1) 08/09/22 17:38 Nucleated RBC % (auto) 0 % 08/09/22 17:38 Nucleated RBCs # 0.0 /100WBC 08/09/22 17:38 PT 13.20 SECONDS (12.1-14.9) 08/09/22 17:38 INR 0.98 (0.8-1.2) 08/09/22 17:38 Sodium 137 mmol/L (136-145) 08/09/22 17:38 Potassium 4.2 mmol/L (3.5-5.1) 08/09/22 17:38 Chloride 99 mmol/L (98-107) 08/09/22 17:38 Carbon Dioxide 25 mmol/L (22-29) 08/09/22 17:38 Anion Gap 17.2 (5-19) 08/09/22 17:38 BUN 25 mg/dL (8-23) H 08/09/22 17:38 Creatinine 0.7 mg/dL (0.7-1.2) 08/09/22 17:38 GFR Calculation 111.5 mL/min (90-130) 08/09/22 17:38 Glucose 111 mg/dL (65-115) 08/09/22 17:38 Calculated Osmolality 289 mOsm/kg (285-295) 08/09/22 17:38 Calcium 9.3 mg/dL (8.5-10.5) 08/09/22 17:38 Total Bilirubin 0.4 mg/dL (0.15-1.2) 08/09/22 17:38 AST 24 U/L (0-40) 08/09/22 17:38 ALT 10 U/L (0-41) 08/09/22 17:38 Alkaline Phosphatase 86 U/L (40-130) 08/09/22 17:38 Creatine Kinase 82 U/L (39-308) 08/09/22 17:38 NT-Pro-B Natriuret Pep 861 pg/mL (0-125) H 08/09/22 17:38 Total Protein 6.9 g/dL (6.6-8.7) 08/09/22 17:38 Albumin 3.8 g/dL (3.5-5.2) 08/09/22 17:38 Globulin 3.1 g/dL (1.3-4.6) 08/09/22 17:38 SARS-CoV-2 Ag (Rapid) Positive (Negative) H 08/09/22 17:43 EKG Data EKG 1: I personally reviewed and interpreted this EKG as follows: EKG interpretation date: 08/09/22 EKG interpretation time: 18:11 Interpretation: nsr hr [address] or t wave abnormalities qrs 63 qtc 393 Discharge Plan Discharge Patient Disposition: Admitted As Inpatient Clinical Impression: Weakness, COVID-19 Condition: Stable Coding Level of Care Code ED Certified Hearing Instrument Dispenser for Chg Fwd Exam Comprehensive
[2022-08-09 17:46] LABS: Basophils % 0.2 %; Eosinophils % 0.2 %; Hematocrit 55.1 % (42.0-52.0); Hemoglobin 17.4 g/dL (11.7-16.6); Lymphocytes # 1.7 10^3/uL (0.8-4.8); Lymphocytes % 13.1 %; Mean Corpuscular HGB Conc 31.6 g/dL (30.0-36.0); Mean Corpuscular Hemoglobin 29.4 pg (28.0-34.0); Mean Corpuscular Volume 93.1 fl (80-94); Mean Platelet Volume 12.8 fL (7.4-10.4); Monocytes # 1.8 10^3/uL (0.2-0.9); Monocytes % 13.7 %; Neutrophils % 71.9 %; Nucleated Red Blood Cells % 0 %; Platelet Count 137 10^3/cmm (130-400); Red Blood Count 5.92 10^6/uL (4.1-5.3); Red Cell Distribution Width 15.9 % (12.1-15.1); White Blood Count 12.8 10^3/uL (4.0-10.0)
[2022-08-09 17:48] VITALS: BP 147/83; PULSE 70; RESP 25; O2SAT 92
[2022-08-09] MEDS: lactated ringers 1,000 ML 999 ML IV (17:50)
[2022-08-09 18:02] LABS: INR 0.98 (0.8-1.2)
[2022-08-09 18:17] LABS: SARS Covid-2 Antigen Positive (Negative)
[2022-08-09 18:20] LABS: Alanine Aminotransferase 10 U/L (0-41); Albumin Level 3.8 g/dL (3.5-5.2); Alkaline Phosphatase 86 U/L (40-130); Blood Urea Nitrogen 25 mg/dL (8-23); Calcium 9.3 mg/dL (8.5-10.5); Carbon Dioxide 25 mmol/L (22-29); Chloride 99 mmol/L (98-107); Creatine Phosphokinase 82 U/L (39-308); Globulin 3.1 g/dL (1.3-4.6); Glomerular Filtration Rate 111.5 mL/min (90-130); Glucose 111 mg/dL (65-115); NT Pro B Type Natriuretic Pept 861 pg/mL (0-125); Osmolality Calculated 289 mOsm/kg (285-295); Sodium 137 mmol/L (136-145); Total Bilirubin 0.4 mg/dL (0.15-1.2); Total Protein 6.9 g/dL (6.6-8.7)
[2022-08-09 18:25] LABS: Anion Gap 17.2 (5-19); Aspartate Amino Transferase 24 U/L (0-40); Potassium 4.2 mmol/L (3.5-5.1)
--- NOTE | 2022-08-09 18:52 | PC.NURSE ---
Report to [facility]
[2022-08-09] MEDS: dexamethasone 10 mg/mL INJ 6 MG IVP (18:57)
[2022-08-09 19:39] LABS: Troponin(5th) Baseline 16 ng/L (0-15)
--- NOTE | 2022-08-09 20:14 | ECG_ITS ---
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 Measurements Intervals [place] Rate: 62 P: 81 MA: 149 QRS: 85 QRSD: 67 T: 85 QT: 393 QTc: 401 Interpretive Statements SINUS RHYTHM POSSIBLE LEFT ATRIAL ENLARGEMENT [-0.1mV P-WAVE IN V1/V2] ANTEROSEPTAL MYOCARDIAL INFARCTION , OF INDETERMINATE AGE [40+ ms Q WAVE IN V1-V4] Compared to ECG 08/09/2022 18:11:24 No significant changes Electronically Signed On 08-09-2022 20:51:12 CDT by Jerod Mccord M.D. [id number]
--- NOTE | 2022-08-09 20:30 | PM.HP ---
Providers/Chief Complaint Admitting Physician: Orestes Keith MD Primary Care Provider: Vanessa Lomas Chief Complaint: WEAKNESS History of Present Illness Stan Maynard is a 72 year old male with a past medical Struve hypertension, history of COPD, history of smoking, history of carotid artery disease, history of frequent falls, history of GERD, history of strokes, who presents [facility] due to fatigue, malaise, shortness of breath, cough for the last few days. Patient tells me that for the last few days he has had significant fatigue, malaise, shortness of breath with exertion, nonproductive cough, no bloody cough, no chest pain, no palpitations, is a smoker. Denies any dysuria, hematuria, no flank pain. No abdominal pain. No headache, blurry vision. Work-up in the emergency room was relatively unremarkable except COVID-19 positivity, patient is too weak to go home he tells ER provider so hospitalist team was called for admission. He tells me that he has generalized weakness, no dysuria, no focal weakness, no focal paresthesias he tells me he just feels exhausted. Review of Systems Const: Reports: fatigue and malaise Card: Denies: chest pain Resp: Reports: dyspnea, productive cough and non-productive cough GI: Denies: abdominal pain, nausea or vomiting : Denies: flank pain, difficulty urinating or dysuria Medications/Allergies Home Medications Medication Instructions Recorded Confirmed Last Taken Type duloxetine 30 mg capsule,delayed 30 mg PO DAILY 08/16/20 05/10/21 Unknown History release sprinkle hydroxyzine HCl 25 mg tablet 25 mg PO TID PRN Anxiety 08/16/20 05/10/21 Unknown History megestrol 40 mg tablet 40 mg PO BID 08/16/20 05/10/21 Unknown History pantoprazole 40 mg tablet,delayed 40 mg PO DAILY 08/16/20 05/10/21 Unknown History release (Protonix) alprazolam 0.5 mg tablet (Xanax) 0.5 mg PO BID PRN Anxiety 05/10/21 05/10/21 Unknown History aspirin 325 mg tablet,delayed 325 mg PO DAILY #30 tabs 05/11/21 Unknown Rx release atorvastatin 40 mg tablet 40 mg PO BEDTIME #30 tabs 05/11/21 Unknown Rx Allergies Allergy/AdvReac Type Severity Reaction Status Date / Time azithromycin Allergy Unknown Verified 12/12/19 14:12 fentanyl Allergy ALGY-Rash Verified 12/12/19 14:12 gabapentin Allergy ADR-Gastrointestinal Verified 09/24/20 18:31 Upset oxycodone Allergy ADR-Nausea Verified 12/12/19 14:11 PFSH Acute PFSH: Medical History Abnormal EKG Benign essential HTN Carotid artery disease COPD (chronic obstructive pulmonary disease) Depression Emphysema of lung Frequent falls GERD (gastroesophageal reflux disease) History of stroke Leg pain Low back pain Memory loss Nausea & vomiting Near syncope Surgical History Gallstones History of back surgery History of endarterectomy Removal of plaque in artery History of knee surgery Right History of neck surgery Family History Sister Diabetes Other Cancer Gallstones Denies family history of Anesthesia complication Bleeding disorder Social History Smoking and tobacco status: current every day smoker cigarettes Second hand smoke exposure: Yes Alcohol intake: never Adopted: No Caregiver/support person: Yes Lives independently: Yes Household members: none Housing: Assisted Living Facility Marital status: Highest education level completed: High School Graduate service: No Current occupational status: retired Current occupational exposures/hazards: No Pets and animals: No History of recent travel: No Sexually active: Yes Current gender identity: Male Rupinder/Jewish: [employer]ian Special rupinder needs: No Agree to transfusion: No Financial difficulty paying for basics: Decline to Answer Vitals/I&O/Wt Last Vital Signs Temp 99 F 08/09/22 16:51 Pulse 70 08/09/22 17:48 Resp 25 H 08/09/22 17:48 BP 147/83 08/09/22 17:48 Pulse Ox 92 08/09/22 17:48 O2 Del Method 08/09/22 17:48 08/09/22 08/09/22 08/09/22 06:59 14:59 22:59 Intake Total 1000 / 1000 Balance 1000 / 1000 Weight last 48 hrs Weight 52.163 kg Physical Exam Const: COMMON NORMALS: no acute distress and patient oriented x3 HENMT: COMMON NORMALS: normocephalic HEAD & SCALP: normocephalic Eye: COMMON NORMALS: Equal, round and reactive pupils present and EOMs intact bilaterally Neck/C-Spine: COMMON NORMALS: no JVD Resp: COMMON NORMALS: normal respiratory effort, No retractions, No use of accessory muscles and clear to auscultation bilaterally AUSCULTATION: clear to auscultation bilaterally Cardio: COMMON NORMALS: no JVD, regular rate, regular rhythm, S1 normal heart sound present and S2 normal heart sound present RATE: regular rate RHYTHM: regular rhythm HEART SOUNDS: S1 normal heart sound present and S2 normal heart sound present GI: COMMON NORMALS: Normal to inspection, nondistended, normoactive bowel sounds present, Soft to palpation, non-tender, No hepatosplenomegaly present, no masses and no bruits PALPATION: Yes Soft to palpation and Yes No hepatosplenomegaly present Extremity: COMMON NORMALS: no calf tenderness and no pedal edema Neuro: COMMON NORMALS: patient oriented x3, CN's II-XII intact bilaterally, moves all extremities and no focal motor deficits Psych: COMMON NORMALS: mental status grossly normal Data : 08/09/22 17:38 08/09/22 17:38 Micro: Microbiology 08/09/22 19:15 Blood Culture - Preliminary Blood SPECIMEN COLLECTED 08/09/22 18:30 Blood Culture - Preliminary Blood SPECIMEN COLLECTED A&P Assessment and plan (1) Weakness: Status: Acute (2) COVID-19: Status: Acute Plan Generalized weakness, dehydration, COVID-19 pneumonia -Admit to general medical floors, IV hydration -Follow UA -Follow D-dimer, although not requiring any oxygen, no chest pain -Serial EKGs, serial troponins, telemetry monitoring -Decadron, doxycycline -Vitamin C, zinc, vitamin D - DuoNeb, budesonide -DNR/DNI -Lovenox for DVT prophylaxis Attestations Medical Necessity Statement*: Patient requires hospitalization due to generalized weakness from COVID-19 pneumonia, dehydration Coding Level of Care Code Acute Senior Caregiver for [facility] Fwd Diagnoses Weakness R53.1 COVID-19 U07.1
[2022-08-09 20:32] VITALS: BP 151/76; PULSE 59; RESP 24; O2SAT 94
[2022-08-09 21:34] LABS: Troponin 5 2HR 16.18 ng/L (0-15)
[2022-08-09 21:36] LABS: Troponin 5 2HR Delta 0.18 ABS# (0-10)
[2022-08-09] MEDS: enoxaparin 40 mg/0.4 mL Syringe SUBCUT (21:56)
[2022-08-09] MEDS: doxycycline 100 mg Tablet PO (21:56)
[2022-08-09] MEDS: atorvastatin 40 mg Tablet PO (21:57)
[2022-08-09] MEDS: dextrose 5%-sod chloride 0.9% 1,000 ML 100 ML IV (21:59)
[2022-08-09 22:00] VITALS: PULSE 72
[2022-08-09 22:05] LABS: Thyroid Stimulating Hormone 0.92 uIU/mL (0.27-4.20)
[2022-08-09 23:37] VITALS: PULSE 66; RESP 18; O2SAT 94
[2022-08-09 23:39] VITALS: O2SAT 94
[2022-08-09] MEDS: ipratropium-albuterol 3 mL Neb INHALATION (23:41)
[2022-08-10] VITALS (9 sets, daily range): BP systolic 109–153; BP diastolic 70–85; PULSE 53–65; RESP 15–18; TEMP 36.6–36.8; O2SAT 92–98
--- NOTE | 2022-08-10 00:14 | ECG_ITS ---
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 Measurements Intervals [place] Rate: 63 P: 72 MS: 147 QRS: 7 QRSD: 77 T: 79 QT: 403 QTc: 416 Interpretive Statements SINUS RHYTHM SEPTAL MYOCARDIAL INFARCTION , OF INDETERMINATE AGE [40+ ms Q WAVE IN V1/V2] Compared to ECG 08/09/2022 20:10:45 No significant changes Electronically Signed On 08-10-2022 16:32:06 CDT by Evelia Javed M.D. [id number]
[2022-08-10 04:15] LABS: Basophils % 0.2 %; Eosinophils % 0.2 %; Hematocrit 42.2 % (42.0-52.0); Hemoglobin 13.8 g/dL (11.7-16.6); Lymphocytes # 0.7 10^3/uL (0.8-4.8); Lymphocytes % 7.3 %; Mean Corpuscular HGB Conc 32.7 g/dL (30.0-36.0); Mean Corpuscular Hemoglobin 29.2 pg (28.0-34.0); Mean Corpuscular Volume 89.2 fl (80-94); Mean Platelet Volume 10.8 fL (7.4-10.4); Monocytes # 0.2 10^3/uL (0.2-0.9); Monocytes % 1.6 %; Neutrophils # 8.42 10^3/uL (1.8-7.7); Neutrophils % 90.5 %; Nucleated Red Blood Cells % 0 %; Platelet Count 304 10^3/cmm (130-400); Red Blood Count 4.73 10^6/uL (4.1-5.3); Red Cell Distribution Width 13.8 % (12.1-15.1); White Blood Count 9.3 10^3/uL (4.0-10.0)
[2022-08-10] MEDS: ipratropium-albuterol 3 mL Neb INHALATION ×3 (04:17→11:53)
[2022-08-10 04:33] LABS: Blood Urea Nitrogen 16 mg/dL (8-23); Calcium 8.9 mg/dL (8.5-10.5); Carbon Dioxide 23 mmol/L (22-29); Chloride 102 mmol/L (98-107); Glomerular Filtration Rate 59.9 mL/min (90-130); Glucose 185 mg/dL (65-115); Magnesium 1.9 mg/dL (1.7-2.3); Osmolality Calculated 290 mOsm/kg (285-295); Phosphorus 3.6 mg/dL (2.5-4.5); Sodium 137 mmol/L (136-145)
[2022-08-10 04:35] LABS: Lactic Sepsis W/Reflex 1.3 mmol/L (0.5-2.2); Troponin 5 6HR 92.32 ng/L (0-15)
[2022-08-10 04:48] LABS: Troponin 5 6HR Delta 76.32 ng/L (0-12)
--- NOTE | 2022-08-10 04:51 | USCV_ITS ---
MaynardStan ceja Age: 72 Gender: M : 1950 Exam Date: 08/10/2022 10:56 Ordering Phys: Orestes Keith MD Technologist: Edmond Muhammad [place] [facility] [place] nstemi BP: 153 / 85 HR: Rhythm: Sinus Technical Quality: Adequate MEASUREMENTS (Male / Female) Normal Values 2D ECHO LV Diastolic Diameter PLAX 3.4 cm 4.2 - 5.9 / 3.9 - 5.3 cm LV Systolic Diameter PLAX 2.1 cm IVS Diastolic Thickness 1.0 cm 0.6 - 1.0 / 0.6 - 0.9 cm IVS Systolic Thickness 1.4 cm LVPW Diastolic Thickness 1.0 cm 0.6 - 1.0 / 0.6 - 0.9 cm LVPW Systolic Thickness 1.3 cm LVOT Diameter 2.0 cm LV Ejection Fraction 2D Teich 71.8 % LV Ejection Fraction MOD 2C 66.9 % LV Ejection Fraction 2C AL 66.8 % LA Diameter 3.1 cm M-MODE Aortic Annulus Diameter 2.6 cm LA Ao Ratio MM 1.3 MV E Point Septal Separation 0.4 cm DOPPLER AV Peak Velocity 145.0 cm/s LVOT Peak Velocity 115.0 cm/s AV Area Cont Eq vti 2.3 cm squared AV Area Cont Eq pk 2.6 cm squared MV Area PHT 5.0 cm squared Mitral E to A Ratio 0.9 MV E' Velocity 55.0 cm/s Mitral E to MV E' Ratio 11.6 Mitral E to LV E' Lateral Ratio 10.8 Mitral E to LV E' Septal Ratio 12.6 TR Peak Velocity 272.7 cm/s TR Peak Gradient 29.7 mmHg TV Peak E Velocity 99.0 cm/s Right Atrial Pressure 3.0 mmHg Pulmonary Artery Systolic Pressu 32.7 mmHg RV Acceleration Time 0.1 s FINDINGS Left Ventricle Normal left ventricular size and systolic function, EF 68 %. Mild left ventricular hypertrophy. Grade I/IV diastolic dysfunction (abnormal relaxation filling pattern), normal to mildly elevated filling pressures. Right Ventricle Possibly of normal size and ejection fraction Right Atrium Possibly of normal size Left Atrium Possibly of normal size Mitral Valve Mild mitral valve regurgitation. Aortic Valve No gross abnormalities noted Tricuspid Valve Mild tricuspid valve regurgitation. Pulmonic Valve Pulmonic valve not well visualized. Pericardium No pericardial effusion. Aorta Normal aortic annulus size. IVC Normal IVC dimension with >50% respiratory change of the inferior vena cava. CONCLUSIONS Normal left ventricular size and systolic function, EF 68 %. Mild left ventricular hypertrophy. Grade I/IV diastolic dysfunction (abnormal relaxation filling pattern), normal to mildly elevated filling pressures. Mild mitral valve regurgitation. Mild tricuspid valve regurgitation. Estimated pulmonary artery peak systolic pressure 33 mmHg There is no pericardial effusion. There are no intracardiac masses. Technically somewhat difficult study because of the poor apical windows Dr Jerod Mccord MD FACC (Electronically Signed) Final Date: 10 August 2022 20:13 S
--- NOTE | 2022-08-10 04:53 | CT_ITS ---
WS: [id number] CTA OF THE CHEST WITH PULMONARY EMBOLISM PROTOCOL TECHNIQUE: High-resolution contrast enhanced CTA of the chest with coronal and sagittal reformatted i mages with pulmonary embolism protocol. MIP images are also reviewed. CLINICAL INFORMATION: cvvid, nstemi COMPARISON: CT 2012 and 2015 DLP: 169.[address] scans at [facility] use at least one of these dose optimization techniques: automated e xposure control; mA and/or kV adjustment per patient size (includes targeted exams where dose is matc hed to clinical indication); or iterative reconstruction. FINDINGS: Proximal main pulmonary arteries are normal. Normal segmental and subsegmental pulmonary arteries. No evidence of pulmonary embolus. Ectatic ascending thoracic aorta measuring 3.8 cm. Moderate aortic calcification. Normal caliber desc ending thoracic aorta. Normal GE junction. Cholecystectomy clips. A few Schmorl's nodes in the mid th oracic spine. Moderate chronic emphysematous changes. No focal pneumonia or pleural fluid. Scattered hazy subpleura l groundglass opacities more prominent in the LEFT lower lobe. . No focal consolidation or pleural fl uid. Calcified granuloma RIGHT upper lobe. A few slightly prominent mediastinal lymph nodes likely re active. Postoperative changes lower cervical spine. CT/CT angio chest PE protcl [id number] IMPRESSION: 1. No evidence of pulmonary embolus. 2. Moderate chronic emphysematous changes. 3. Scattered hazy groundglass opacities worse in the LEFT lower lobe.. Recomme nd correlation for Covid 19 pneumonia. 4. No focal consolidation or pleural fluid. 5. Ectatic ascending thoracic aorta measuring 3.8 cm.
[2022-08-10 05:08] LABS: Procalcitonin 0.05 ng/mL (0-0.5)
[2022-08-10] MEDS: pneumococcal (23 valent) SDV 0.5 mL IM (05:33)
[2022-08-10 05:43] LABS: D Dimer 2.66 ug/mIFEU (0-0.59)
[2022-08-10 07:40] LABS: Add Urine Microscopic? YES; Bilirubin Urine Neg (Negative); Blood Urine Neg (Negative); Glucose Urine UA Norm (Normal); Ketones Urine 1+ (Negative); Leukocyte Esterase Urine Negative (Negative); Nitrate Urine Negative (Negative); Protein Urine 1+ (Negative); Specific Gravity, Urine 1.025 (1.005-1.030); Urine Appearance Clear (CLEAR); Urine Color Yellow (Yellow); Urobilinogen Urine 1 mg/dL (Negative); pH Urine 6 (5-7)
[2022-08-10 07:51] LABS: Squamous Epithelial Cell Urine 0-4 /hpf (0-5); WBC Urine 0-4 /hpf (0-5)
[2022-08-10 07:52] LABS: Mucus Urine 2+ /hpf
[2022-08-10] MEDS: budesonide 0.5 mg/2 mL Neb INHALATION (08:14)
[2022-08-10] MEDS: zinc gluconate 50 mg Tablet PO (08:59)
[2022-08-10] MEDS: cholecalciferol (vitamin D3) 1,000 unit Tablet 1000 UNIT PO (08:59)
[2022-08-10] MEDS: pantoprazole DR 40 mg Tablet PO (08:59)
[2022-08-10] MEDS: duloxetine 30 mg Capsule PO (08:59)
[2022-08-10] MEDS: ascorbic acid 500 mg Tablet PO (08:59)
[2022-08-10] MEDS: docusate sodium 100 mg Capsule PO (08:59)
[2022-08-10] MEDS: aspirin 325 mg EC Tablet PO (08:59)
[2022-08-10] MEDS: dextrose 5%-sod chloride 0.9% 1,000 ML 100 ML IV (09:08)
[2022-08-10] MEDS: doxycycline 100 mg Tablet PO (09:10)
[2022-08-10] MEDS: iohexol 350 mg/mL 100 mL Btl IV (09:58)
--- NOTE | 2022-08-10 12:51 | PM.DCS ---
Discharge Providers Date of Admission: 08/09/22 21:24 Date of Discharge: August 10, 2022 Attending Provider at Admission: Orestes Keith MD Attending Provider at Discharge: Wil Garcia MD Primary Care Provider: Vanessa Dang at Discharge Discharge Diagnosis (1) Weakness: Status: Acute (2) COVID-19: Status: Acute Reason for Visit Reason for Visit: WEAKNESS Hospital Course Hospital Course Stan Maynard is a 72 year old male with a past medical Struve hypertension, history of COPD, history of smoking, history of carotid artery disease, history of frequent falls, history of GERD, history of strokes, who presents [facility] due to fatigue, malaise, shortness of breath, cough for the last few days.? Patient tells me that for the last few days he has had significant fatigue, malaise, shortness of breath with exertion, nonproductive cough, no bloody cough, no chest pain, no palpitations, is a smoker.? Denies any dysuria, hematuria, no flank pain.? No abdominal pain.? No headache, blurry vision.? Work-up in the emergency room was relatively unremarkable except COVID-19 positivity, patient is too weak to go home he tells ER provider so hospitalist team was called for admission.? He tells me that he has generalized weakness, no dysuria, no focal weakness, no focal paresthesias he tells me he just feels exhausted. Patient will to the hospital further evaluation and management of malaise secondary to COVID-19. During hospitalization he remained hemodynamically stable afebrile and on room air. Patient lives by himself and for the safe discharge plan were discussed in detail with him. He denied placement to SNF or home health. Has been discharged hemodynamically stable condition on oral medications. He is to take dexamethasone 6 mg daily for next 10 days, paxlovid along with continuation of all his home medications. He is advised to come back to the ER if he has fever persistent of more than 101 and difficulty in breathing or saturation persistently less than 88%. Physical Exam Const: COMMON NORMALS: no acute distress and patient oriented x3 HENMT: COMMON NORMALS: normocephalic HEAD & SCALP: normocephalic Eye: COMMON NORMALS: Equal, round and reactive pupils present and EOMs intact bilaterally PUPIL: Yes Equal, round and reactive pupils present Neck/C-Spine: COMMON NORMALS: no JVD Resp: COMMON NORMALS: normal respiratory effort, No retractions, No use of accessory muscles and clear to auscultation bilaterally AUSCULTATION: clear to auscultation bilaterally Cardio: COMMON NORMALS: no JVD, regular rate, regular rhythm, S1 normal heart sound present and S2 normal heart sound present RATE: regular rate RHYTHM: regular rhythm HEART SOUNDS: S1 normal heart sound present and S2 normal heart sound present GI: COMMON NORMALS: Normal to inspection, nondistended, normoactive bowel sounds present, Soft to palpation, non-tender, No hepatosplenomegaly present, no masses and no bruits PALPATION: Yes Soft to palpation and Yes No hepatosplenomegaly present Extremity: COMMON NORMALS: no calf tenderness and no pedal edema Neuro: COMMON NORMALS: patient oriented x3, CN's II-XII intact bilaterally, moves all extremities and no focal motor deficits Psych: COMMON NORMALS: mental status grossly normal Discharge Data Studies Completed and Pending Completed Studies During Hospitalization Category Date Time Status CT angio chest PE protcl [id number] Routine Cat Scan 08/10/22 04:[address] head wo con* [id number] Stat Cat Scan 08/09/22 17:05 Completed XR chest 1V portable [id number] Stat Exams 08/09/22 17:05 Completed Pending at discharge Category Date Time Status Blood Culture Stat Lab 08/09/22 19:15 Results CV. echo complete* [id number] Routine Ultrasound 08/10/22 04:51 Taken Radiology Impressions Chest X-Ray 08/09/22 17:05 IMPRESSION: Stable COPD . Head CT 08/09/22 17:05 IMPRESSION: No acute intracranial findings. Chest CTA 08/10/22 04:53 IMPRESSION: 1. No evidence of pulmonary embolus. 2. Moderate chronic emphysematous changes. 3. Scattered hazy groundglass opacities worse in the LEFT lower lobe.. Recommend correlation for Covid 19 pneumonia. 4. No focal consolidation or pleural fluid. 5. Ectatic ascending thoracic aorta measuring 3.8 cm. Laboratory Results WBC 9.3 10^3/uL (4.0-10.0) 08/10/22 04:09 RBC 4.73 10^6/uL (4.1-5.3) 08/10/22 04:09 Hgb 13.8 g/dL (11.7-16.6) 08/10/22 04:09 Hct 42.2 % (42.0-52.0) 08/10/22 04:09 MCV 89.2 fl (80-94) 08/10/22 04:09 MCH 29.2 pg (28.0-34.0) 08/10/22 04:09 MCHC 32.7 g/dL (30.0-36.0) 08/10/22 04:09 RDW 13.8 % (12.1-15.1) 08/10/22 04:09 Plt Count 304 10^3/cmm (130-400) D 08/10/22 04:09 MPV 10.8 fL (7.4-10.4) H 08/10/22 04:09 Neut % (Auto) 90.5 % 08/10/22 04:09 Lymph % (Auto) 7.3 % 08/10/22 04:09 [place] % (Auto) 1.6 % 08/10/22 04:09 Eos % (Auto) 0.2 % 08/10/22 04:09 Baso % (Auto) 0.2 % 08/10/22 04:09 Neut # (Auto) 8.42 10^3/uL (1.8-7.7) H 08/10/22 04:09 Lymph # (Auto) 0.7 10^3/uL (0.8-4.8) L 08/10/22 04:09 [place] # (Auto) 0.2 10^3/uL (0.2-0.9) 08/10/22 04:09 Eos # (Auto) 0.0 10^3/uL (0.0-0.8) 08/10/22 04:09 Baso # (Auto) 0.0 10^3/uL (0.0-0.1) 08/10/22 04:09 Nucleated RBC % (auto) 0 % 08/10/22 04:09 Nucleated RBCs # 0.0 /100WBC 08/10/22 04:09 PT 13.20 SECONDS (12.1-14.9) 08/09/22 17:38 INR 0.98 (0.8-1.2) 08/09/22 17:38 D-Dimer 2.66 ug/mIFEU (0-0.59) H 08/10/22 04:09 Sodium 137 mmol/L (136-145) 08/10/22 04:09 Potassium 4.0 mmol/L (3.5-5.1) 08/10/22 04:09 Chloride 102 mmol/L (98-107) 08/10/22 04:09 Carbon Dioxide 23 mmol/L (22-29) 08/10/22 04:09 Anion Gap 16.0 (5-19) 08/10/22 04:09 BUN 16 mg/dL (8-23) 08/10/22 04:09 Creatinine 1.2 mg/dL (0.7-1.2) 08/10/22 04:09 GFR Calculation 59.9 mL/min (90-130) L 08/10/22 04:09 Glucose 185 mg/dL (65-115) H 08/10/22 04:09 Calculated Osmolality 290 mOsm/kg (285-295) 08/10/22 04:09 Lactic Acid 1.3 mmol/L (0.5-2.2) 08/10/22 04:09 Calcium 8.9 mg/dL (8.5-10.5) 08/10/22 04:09 Phosphorus 3.6 mg/dL (2.5-4.5) 08/10/22 04:09 Magnesium 1.9 mg/dL (1.7-2.3) 08/10/22 04:09 Total Bilirubin 0.4 mg/dL (0.15-1.2) 08/09/22 17:38 AST 24 U/L (0-40) 08/09/22 17:38 ALT 10 U/L (0-41) 08/09/22 17:38 Alkaline Phosphatase 86 U/L (40-130) 08/09/22 17:38 Creatine Kinase 82 U/L (39-308) 08/09/22 17:38 Troponin T Baseline 16 ng/L (0-15) H 08/09/22 19:15 Troponin T 120 Minute 16.18 ng/L (0-15) H 08/09/22 21:12 Delta Troponin T 0.18 ABS# (0-10) 08/09/22 21:12 Troponin T Hi Sens 6Hr 92.32 ng/L (0-15) H 08/10/22 04:09 Troponin T Hi Sens 6Hr Delta 76.32 ng/L (0-12) H* 08/10/22 04:09 NT-Pro-B Natriuret Pep 91824 pg/mL (0-125) H 08/10/22 04:09 Total Protein 6.9 g/dL (6.6-8.7) 08/09/22 17:38 Albumin 3.8 g/dL (3.5-5.2) 08/09/22 17:38 Globulin 3.1 g/dL (1.3-4.6) 08/09/22 17:38 Procalcitonin 0.05 ng/mL (0-0.5) 08/10/22 04:09 TSH 0.92 uIU/mL (0.27-4.20) 08/09/22 21:12 Urine Color Yellow (Yellow) 08/10/22 05:40 Urine Appearance Clear (CLEAR) 08/10/22 05:40 Urine pH 6 (5-7) 08/10/22 05:40 Ur Specific Lee 1.025 (1.005-1.030) 08/10/22 05:40 Urine Protein 1+ (Negative) H 08/10/22 05:40 Urine Glucose (UA) Norm (Normal) 08/10/22 05:40 Urine Ketones 1+ (Negative) H 08/10/22 05:40 Urine Blood Neg (Negative) 08/10/22 05:40 Urine Nitrate Negative (Negative) 08/10/22 05:40 Urine Bilirubin Neg (Negative) 08/10/22 05:40 Urine Urobilinogen 1 mg/dL (Negative) H 08/10/22 05:40 Ur Leukocyte Esterase Negative (Negative) 08/10/22 05:40 Urine RBC None /hpf (0-2) 08/10/22 05:40 Urine WBC 0-4 /hpf (0-5) H 08/10/22 05:40 Ur Squamous Epith Cells 0-4 /hpf (0-5) H 08/10/22 05:40 Ur Transition Epith Cell None /hpf 08/10/22 05:40 Amorphous Sediment Not Reportable 08/10/22 05:40 Urine Bacteria None /hpf (NONE) 08/10/22 05:40 Urine Mucus 2+ /hpf 08/10/22 05:40 SARS-CoV-2 Ag (Rapid) Positive (Negative) H 08/09/22 17:43 Vitals Last Vital Signs Temp 97.9 F 08/10/22 12:00 Pulse 64 08/10/22 12:00 Resp 18 08/10/22 12:00 BP 149/81 08/10/22 12:00 Pulse Ox 96 08/10/22 12:00 O2 Del Method 08/10/22 12:00 O2 Flow Rate 95 08/10/22 08:00 Discharge Plan Discharge Patient Disposition: Home Condition: Stable Prescriptions: New ascorbic acid (vitamin C) [Vitamin C] 500 mg Tablet 500 mg PO BID Qty: 14 0RF doxycycline monohydrate 100 mg Tablet 100 mg PO Q12H Qty: 10 0RF dexamethasone 6 mg tablet 6 mg PO DAILY Qty: 10 0RF Paxlovid (EUA) 150-100 mg tablet See Rx Instructions .ROUTE .COMPLEX Qty: 10 0RF Rx Instructions: take ONE 150 mg tablet of nirmatrelvir with ONE 100 mg tablet of ritonavir twice daily for 5 days pantoprazole [Protonix] 40 mg tablet,delayed release (DR/EC) 40 mg PO QAM Qty: 14 0RF Continued megestrol 40 mg tablet 40 mg PO BID pantoprazole [Protonix] 40 mg tablet,delayed release (DR/EC) 40 mg PO DAILY duloxetine 30 mg capsule, delayed rel sprinkle 30 mg PO DAILY atorvastatin 40 mg Tablet 40 mg PO BEDTIME Qty: 30 0RF meloxicam 15 mg tablet 15 mg PO DAILY ondansetron HCl 4 mg tablet 4 mg PO Q6H PRN (Reason: Nausea And Vomiting) buspirone 10 mg tablet 10 mg PO BID PRN (Reason: Anxiety) baclofen 5 mg tablet 5 mg PO TID PRN (Reason: Pain) doxepin 25 mg capsule 25 - 50 mg PO BEDTIME Discharge Orders: Discharge Order (Routine); Ordered 08/10/22 Ordered By: Wil Garcia Referrals: Vanessa Lomas [Primary Care Provider] - 1 week Discharge Diet: Usual diet Discharge Activity: Resume usual activity and Increase activity as tolerated Patient Instructions: Opioid Safety Activity Restrictions/Additional Instructions: Take dexamethasone 6 mg daily for next 10 days, paxlovid for 5 days twice daily along with continuation of all his home medications. He is advised to come back to the ER if he has fever persistent of more than 101 and difficulty in breathing or saturation persistently less than 88%. Discharge Attestations Time Spent in Discharge Care*: greater than 30 min Specific Discharge Activities: educating patient, discussing with pcp/other providers, discussing with complex case manager/social workers/dc planners, documenting/other paperwork and evaluating patient/reviewing data Status at Discharge: Cognitive status at discharge: cognitively intact, Behavioral status at discharge: cooperative, Functional status at discharge: independent ambulation, Overall status at discharge: patient is progressing back to baseline Quality Metrics Clinical Quality Measures [ No reported AMI, CVA or VTE this stay] Coding Level of Care Code Acute g DC note Diagnoses Weakness R53.1 COVID-19 U07.1
--- NOTE | 2022-08-10 14:24 | PC.CHAP ---
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 [] Patient/Family/Request visit [] Outpatient visit [] Follow-up visit [] Physician referral [] Code/Alert [] Routine visit [] Staff referral [] Actively dying [] Patient sleeping [] Family support [] [] Out of room [] Palliative care [] [] Receiving care in room [] Pre-surgical visit [] Trauma [] Long length of stay [] ICU visit [] Other: Relational/Emotional Strength [] Patient feels connected with others/family/visitors/staff [] Distress [] Loneliness/isolation [] Abandonment Spirituality of Patient [] Person of Rupinder [] Attends Rastafarian of their Rupinder [] Believes in Prayer [] Reads Bible or Anabaptism materials [] There are Spiritual issues to be addressed Manager Ct Interventions [] Prayer [] Active listening [] Non-anxious presence [] Spiritual/emotional support [] Crisis/trauma care [] Spiritual counseling [] Bereavement support [] Provided bereavement packet [] Provided Bible/devotional materials [] Provided toy/stuffed animal, coloring book to patient or family member [] Provided Communion [] Anointing/[place] [] Salvation [] Completed spiritual assessment [] Other: Impact on Illness or Injury [] Angry [] Fearful [] Anxious [] Often cries [] Exhaustion [] Unable to work [] Unable to attend presybeterian [] Unable to walk/stand [] Unable to read [] Unable to drive [] Unable to eat/drink [] Unable to sleep [] Unable to be with family [] Patient intubated [] Other: Summary Time spent with patient 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 [] Patient/Family/Request visit [] Outpatient visit [] Follow-up visit [] Physician referral [] Code/Alert [x]x Routine visit [] Staff referral [] Actively dying [] Patient sleeping [] Family support [] [] Out of room [] Palliative care [] [] Receiving care in room [] Pre-surgical visit [] Trauma [] Long length of stay [] ICU visit [x] Other: covid Relational/Emotional Strength [] Patient feels connected with others/family/visitors/staff [] Distress [] Loneliness/isolation [] Abandonment Spirituality of Patient [] Person of Rupinder [] Attends Rastafarian of their Rupinder [] Believes in Prayer [] Reads Bible or Anabaptism materials [] There are Spiritual issues to be addressed Manager Ct Interventions [] Prayer [] Active listening [] Non-anxious presence [] Spiritual/emotional support [] Crisis/trauma care [] Spiritual counseling [] Bereavement support [] Provided bereavement packet [] Provided Bible/devotional materials [] Provided toy/stuffed animal, coloring book to patient or family member [] Provided Communion [] Anointing/[place] [] Salvation x[] Completed spiritual assessment [] Other: Impact on Illness or Injury [] Angry [] Fearful [] Anxious [] Often cries [] Exhaustion [] Unable to work [] Unable to attend presybeterian [] Unable to walk/stand [] Unable to read [] Unable to drive [] Unable to eat/drink [] Unable to sleep [] Unable to be with family [] Patient intubated [] Other: Summary Time spent with patient
== END 2022-08-10 17:15 | disposition home or self-care (01) ==
LOC: ER 19:32 → MEDSURG 08-10 00:28
PROVIDERS: Admitting Provider Family Medicine; Emergency Provider Emergency Medicine; PCP Nurse Practitioner Family; Visit Provider Student in an Organized Health Care Education/Training Program
DX: U07.1 COVID-19 (principal); I10 Essential (primary) hypertension; J44.9 Chronic obstructive pulmonary disease, unspecified; Z87.891 Personal history of nicotine dependence; I25.10 Atherosclerotic heart disease of native coronary artery without angina pectoris; Z91.81 History of falling; K21.9 Gastro-esophageal reflux disease without esophagitis; Z86.73 Personal history of transient ischemic attack (TIA), and cerebral infarction without residual deficits; Z66 Do not resuscitate; F17.210 Nicotine dependence, cigarettes, uncomplicated
CPT/HCPCS: 36415; 70450; 71045; 71275; 80048; 80053; 81001; 82550; 83605; 83735; 83880; 84100; 84145; 84443; 84484; 85025; 85378; 85610; 87040; 87426; 90471; 90732; 93005; 93306; 94640; 94664; 96361; 96372; 96374; 97110; 97161; 97165; 99285; G0378; J1100; J1650; J7626; Q9967

== ENCOUNTER 2022-08-13 11:41 | Emergency (ER) | payer MEDICARE, MEDICAID, SELFPAY ==
[2022-08-13 11:44] VITALS: BP 182/94; PULSE 67; RESP 16; TEMP 36.7; O2SAT 93
--- NOTE | 2022-08-13 11:49 | XR_ITS ---
WS: [id number] PORTABLE CHEST HISTORY: dyspnea/cough COMPARISON: 08/09/2022 Pulmonary hyperinflation. Minimal scarring or atelectasis at the LEFT lung base. No pneumonia. No ple ural effusion or pneumothorax. Cardiac size: Normal. Mediastinum/Aorta: Mild atherosclerosis aorta. Mild diffuse osteopenia. Extensive prior fusion hardware in the cervical spine. XR/XR chest 1V portable [id number] IMPRESSION: Chronic emphysema. No acute cardiopulmonary disease.
--- NOTE | 2022-08-13 11:57 | ECG_ITS ---
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 Measurements Intervals [place] Rate: 70 P: 73 MT: 138 QRS: 52 QRSD: 71 T: 83 QT: 401 QTc: 433 Interpretive Statements SINUS RHYTHM Compared to ECG 08/09/2022 23:49:21 Myocardial infarct finding no longer present Electronically Signed On 08-14-2022 0:08:55 CDT by Jerod Mccord M.D. [id number]
--- NOTE | 2022-08-13 13:12 | ED_ITS ---
HPI - Weakness General: Chief complaint: Weakness Stated complaint: GENERALIZED WEAKNESS/ COVID + 1 WEEK AGO Time Seen by Provider: 08/13/22 11:43 Source: patient Mode of arrival: ambulatory Limitations: no limitations History of Present Illness: 72-year-old male who presents to the emergency room with complaints of generalized weakness. 1 week ago he was seen for COVID he was admitted for couple days discharged home he was not discharged on home on any oxygen he states he just generally felt very weak short of breath still has a persistent cough to the point that he has pain in his flanks and abdominal muscles from coughing his cough has been nonproductive. He denies any chest pain. Not having any further fever. MD Complaint: generalized weakness Onset (ago): week(s) (1) Location: generalized Migration: none Severity: mild Relieving factors: none Exacerbating factors: none Associated symptoms: Reports chills, decreased appetite, headache(s), myalgias, nausea and short of breath; Denies chest pain, confusion, melena, diaphoresis, dysuria, easy bruising, feve r(s), rash, syncope or vomiting Review of Systems Const: Reports: chills; Denies: fever(s) or diaphoresis ENMT: Denies: throat pain, ear or mastoid pain, nasal discharge or nasal congestion Card: Denies: chest pain or syncope Resp: Denies: dyspnea, productive cough or non-productive cough GI: Reports: abdominal pain and nausea; Denies: vomiting or melena : Denies: flank pain, difficulty urinating, dysuria, urinary frequency or urinary urgency Musc: Denies: neck pain or back pain Skin/Breast: Denies: rash or pruritus Neuro: Reports: headache(s); Denies: confusion Patrick/Lymph: Denies: easy bruising PFSH ED PFSH: Medical History Abnormal EKG Benign essential HTN Carotid artery disease COPD (chronic obstructive pulmonary disease) Depression Emphysema of lung Frequent falls GERD (gastroesophageal reflux disease) History of stroke Leg pain Low back pain Memory loss Nausea & vomiting Near syncope Surgical History Gallstones History of back surgery History of endarterectomy Removal of plaque in artery History of knee surgery Right History of neck surgery Family History Sister Diabetes Other Cancer Gallstones Denies family history of Anesthesia complication Bleeding disorder Social History Smoking and tobacco status: current every day smoker cigarettes Second hand smoke exposure: Yes Alcohol intake: never Adopted: No Caregiver/support person: Yes Lives independently: Yes Household members: none Housing: Assisted Living Facility Marital status: Highest education level completed: High School Graduate service: No Current occupational status: retired Current occupational exposures/hazards: No Pets and animals: No History of recent travel: No Sexually active: Yes Current gender identity: Male Rupinder/Pentecostal: [employer] Special rupinder needs: No Agree to transfusion: No Financial difficulty paying for basics: Decline to Answer Physical Exam Const: GENERAL APPEARANCE: cooperative and comfortable ORIENTATION/CONSCIOUSNESS: Yes awake, Yes oriented to person, Yes oriented to place and Yes oriented to time HENMT: COMMON NORMALS: normocephalic, atraumatic and hearing grossly normal bilaterally HEAD & SCALP: normocephalic and atraumatic Resp: COMMON NORMALS: normal respiratory effort, No retractions and No use of accessory muscles AUSCULTATION: wheezes Cardio: COMMON NORMALS: regular rate, regular rhythm and No murmurs present (Cardio) RATE: regular rate RHYTHM: regular rhythm GI: COMMON NORMALS: Soft to palpation and No hepatosplenomegaly present AUSCULTATION: Yes normoactive bowel sounds PALPATION: Yes Soft to palpation, No Tenderness to palpation present (GI), No Guarding due to palpation present (GI) and Yes No hepatosplenomegaly present Extremity: COMMON NORMALS: normal to inspection, capillary refill normal, no clubbing, cyanosis or edema, no calf tenderness and no pedal edema Neuro: SENSORIUM/ORIENTATION: Yes oriented to person, Yes oriented to place and Yes oriented to time Skin: COMMON NORMALS: no rashes or lesions noted GENERAL SKIN EXAM: no rashes or lesions noted Course Vital Signs: Vital signs: Vital Signs Temperature 98.1 F 08/13/22 11:44 Pulse Rate 78 08/13/22 17:02 Respiratory Rate 16 08/13/22 15:50 Blood Pressure 159/95 08/13/22 17:02 Pulse Oximetry 96 08/13/22 17:02 Oxygen Delivery Me thod 08/13/22 15:50 MDM - Weakness Medical Decision Making Exacerbation COPD complicated by recent COVID infection. Steroids. Encouraged regular use of albuterol early with no. His oxygen sat is stable on room air. Follow-up with his primary care. Medical Records I reviewed the patient's medical records. Lab Data I reviewed the patient's lab results. : 08/13/22 14:16 08/13/22 14:16 Radiology Impressions Chest X-Ray 08/13/22 11:49 IMPRESSION: Chronic emphysema. No acute cardiopulmonary disease. Laboratory Results WBC 5.1 10^3/uL (4.0-10.0) 08/13/22 14:16 Corrected WBC Cancelled 08/13/22 12:34 RBC 5.89 10^6/uL (4.1-5.3) H 08/13/22 14:16 Hgb 17.4 g/dL (11.7-16.6) H 08/13/22 14:16 Hct 52.1 % (42.0-52.0) H 08/13/22 14:16 MCV 88.5 fl (80-94) 08/13/22 14:16 MCH 29.5 pg (28.0-34.0) 08/13/22 14:16 MCHC 33.4 g/dL (30.0-36.0) 08/13/22 14:16 RDW 15.5 % (12.1-15.1) H 08/13/22 14:16 Plt Count 167 10^3/cmm (130-400) 08/13/22 14:16 MPV 13.2 fL (7.4-10.4) H 08/13/22 14:16 Gran % Cancelled 08/13/22 12:34 Neut % (Auto) 67.4 % 08/13/22 14:16 Lymph % (Auto) 14.5 % 08/13/22 14:16 Saunders % (Auto) 15.7 % 08/13/22 14:16 Eos % (Auto) 0.2 % 08/13/22 14:16 Baso % (Auto) 0.2 % 08/13/22 14:16 Neut # (Auto) 3.45 10^3/uL (1.8-7.7) 08/13/22 14:16 Lymph # (Auto) 0.7 10^3/uL (0.8-4.8) L 08/13/22 14:16 Saunders # (Auto) 0.8 10^3/uL (0.2-0.9) 08/13/22 14:16 Eos # (Auto) 0.0 10^3/uL (0.0-0.8) 08/13/22 14:16 Baso # (Auto) 0.0 10^3/uL (0.0-0.1) 08/13/22 14:16 Absolute Gran (auto) Cancelled 08/13/22 12:34 Nucleated RBC % (auto) 0 % 08/13/22 14:16 Nucleated RBCs # 0.0 /100WBC 08/13/22 14:16 Sodium 139 mmol/L (136-145) 08/13/22 14:16 Potassium 3.5 mmol/L (3.5-5.1) 08/13/22 14:16 Chloride 96 mmol/L (98-107) L 08/13/22 14:16 Carbon Dioxide 26 mmol/L (22-29) 08/13/22 14:16 Anion Gap 20.5 (5-19) H 08/13/22 14:16 BUN 13 mg/dL (8-23) 08/13/22 14:16 Creatinine 0.4 mg/dL (0.7-1.2) L 08/13/22 14:16 GFR Calculation 212.7 mL/min (90-130) H 08/13/22 14:16 Glucose 69 mg/dL (65-115) 08/13/22 14:16 Calculated Osmolality 286 mOsm/kg (285-295) 08/13/22 14:16 Calcium 9.0 mg/dL (8.5-10.5) 08/13/22 14:16 Total Bilirubin 0.7 mg/dL (0.15-1.2) 08/13/22 14:16 AST 20 U/L (0-40) 08/13/22 14:16 ALT 12 U/L (0-41) 08/13/22 14:16 Alkaline Phosphatase 98 U/L (40-130) 08/13/22 14:16 Total Protein 7.2 g/dL (6.6-8.7) 08/13/22 14:16 Albumin 3.8 g/dL (3.5-5.2) 08/13/22 14:16 Globulin 3.4 g/dL (1.3-4.6) 08/13/22 14:16 Discharge Plan Discharge Patient Disposition: Home Clinical Impression: COPD (chronic obstructive pulmonary disease) Condition: Stable Prescriptions: New prednisone 20 mg tablet 20 mg PO TID Qty: 15 0RF Rx Instructions: 1 p.o. 3 times daily x3 days, 1 p.o. twice daily x2 days, 1 p.o. daily x2 days albuterol sulfate 90 mcg/actuation HFA aerosol inhaler 2 inh INHALATION Q4H PRN (Reason: shortness of breath or wheezing) Qty: 18 0RF No Action megestrol 40 mg tablet 40 mg PO BID pantoprazole [Protonix] 40 mg tablet,delayed release (DR/EC) 40 mg PO DAILY duloxetine 30 mg capsule, delayed rel sprinkle 30 mg PO DAILY atorvastatin 40 mg Tablet 40 mg PO BEDTIME Qty: 30 0RF meloxicam 15 mg tablet 15 mg PO DAILY ondansetron HCl 4 mg tablet 4 mg PO Q6H PRN (Reason: Nausea And Vomiting) buspirone 10 mg tablet 10 mg PO BID PRN (Reason: Anxiety) baclofen 5 mg tablet 5 mg PO TID PRN (Reason: Pain) doxepin 25 mg capsule 25 - 50 mg PO BEDTIME doxycycline monohydrate 100 mg Tablet 100 mg PO Q12H Qty: 10 0RF Vitamin C 500 mg Tablet 500 mg PO BID Qty: 14 0RF dexamethasone 6 mg tablet 6 mg PO DAILY Qty: 10 0RF Paxlovid (EUA) 150-100 mg tablet See Rx Instructions .ROUTE .COMPLEX Qty: 10 0RF Rx Instructions: take ONE 150 mg tablet of nirmatrelvir with ONE 100 mg tablet of ritonavir twice daily for 5 days Protonix 40 mg tablet,delayed release (DR/EC) 40 mg PO QAM Qty: 14 0RF Discharge Orders: Discharge ED (Routine); Ordered 08/13/22 Ordered By: Mohsen George Referrals: Vanessa Lomas [Primary Care Provider] - Discharge Diet: Usual diet Discharge Activity: Increase activity as tolerated Patient Instructions: Opioid Safety, Pain Management Activity Restrictions/Additional Instructions: Prednisone taper beginning today. Use albuterol as needed recheck if symptoms worsen Coding Level of Care Code ED Community Mental Health Worker for Chg Fwd Exam Detailed
--- NOTE | 2022-08-13 14:01 | PC.RESP ---
home o2 attempted x2 times pt. unable to get up due to weakness and needing food. nsg. and dr George notified
[2022-08-13 14:33] LABS: Basophils % 0.2 %; Eosinophils % 0.2 %; Hematocrit 52.1 % (42.0-52.0); Hemoglobin 17.4 g/dL (11.7-16.6); Lymphocytes # 0.7 10^3/uL (0.8-4.8); Lymphocytes % 14.5 %; Mean Corpuscular HGB Conc 33.4 g/dL (30.0-36.0); Mean Corpuscular Hemoglobin 29.5 pg (28.0-34.0); Mean Corpuscular Volume 88.5 fl (80-94); Mean Platelet Volume 13.2 fL (7.4-10.4); Monocytes # 0.8 10^3/uL (0.2-0.9); Monocytes % 15.7 %; Neutrophils # 3.45 10^3/uL (1.8-7.7); Neutrophils % 67.4 %; Nucleated Red Blood Cells % 0 %; Platelet Count 167 10^3/cmm (130-400); Red Blood Count 5.89 10^6/uL (4.1-5.3); Red Cell Distribution Width 15.5 % (12.1-15.1); White Blood Count 5.1 10^3/uL (4.0-10.0)
[2022-08-13 14:56] VITALS: BP 202/110
[2022-08-13 15:08] LABS: Alanine Aminotransferase 12 U/L (0-41); Albumin Level 3.8 g/dL (3.5-5.2); Alkaline Phosphatase 98 U/L (40-130); Anion Gap 20.5 (5-19); Aspartate Amino Transferase 20 U/L (0-40); Blood Urea Nitrogen 13 mg/dL (8-23); Carbon Dioxide 26 mmol/L (22-29); Chloride 96 mmol/L (98-107); Globulin 3.4 g/dL (1.3-4.6); Glomerular Filtration Rate 212.7 mL/min (90-130); Glucose 69 mg/dL (65-115); Osmolality Calculated 286 mOsm/kg (285-295); Potassium 3.5 mmol/L (3.5-5.1); Sodium 139 mmol/L (136-145); Total Bilirubin 0.7 mg/dL (0.15-1.2); Total Protein 7.2 g/dL (6.6-8.7)
[2022-08-13 15:13] VITALS: BP 177/114; PULSE 78; O2SAT 96
[2022-08-13 15:13] LABS: Slide Review Slide Review Perform
[2022-08-13] MEDS: lactated ringers 1,000 ML 999 ML IV (15:29)
[2022-08-13 15:50] VITALS: BP 153/94; RESP 16; O2SAT 94
[2022-08-13 16:43] VITALS: O2SAT 90; O2SAT 93
[2022-08-13 17:02] VITALS: BP 159/95; PULSE 78; O2SAT 96
== END 2022-08-13 17:05 | disposition home or self-care (01) ==
PROVIDERS: Emergency Provider Family Medicine; PCP Nurse Practitioner Family
DX: J44.9 Chronic obstructive pulmonary disease, unspecified (principal); F17.210 Nicotine dependence, cigarettes, uncomplicated; Z86.73 Personal history of transient ischemic attack (TIA), and cerebral infarction without residual deficits
CPT/HCPCS: 71045; 80053; 85025; 93005; 96360; 99284